=== PATIENT | female | born 1935 | race Caucasian/White ===

== ENCOUNTER 2018-04-24 14:12 | Emergency (ER) | payer MEDICARE, BC ==
--- NOTE | 2018-04-24 19:29 | EDM.PDOC ---
ED HPI GENERAL MEDICAL PROBLEM - General Chief Complaint: ENT Problem Stated Complaint: NOSEBLEED Time Seen by Provider: 04/24/18 14:20 Source of Information: Reports: Patient History Limitations: Reports: No Limitations - History of Present Illness INITIAL COMMENTS - FREE TEXT/NARRATIVE: pt. presents to ER with complaints of bleeding from R nares. States that it has been happening intermittently for 1 hour. She states that she has had issues with more frequent epistaxis this winter and feels it is due to the fact that she had an NG tube in place recently. She states that the bleeding was quite brisk and there were clots coming from her nose. Denies any lightheadedness. No shortness of breath. No nausea, vomiting, or diarrhea. States the bleeding has always been islolated to the R nare. Onset: Today Location: Reports: Face - Related Data Allergies Allergy/AdvReac Type Severity Reaction Status Date / Time atorvastatin calcium Allergy Cannot Verified 04/24/18 14:40 [From Lipitor] Remember calcium Allergy Cannot Verified 04/24/18 14:40 Remember lisinopril Allergy Wheezing Verified 04/24/18 14:40 ezetimibe [From Zetia] AdvReac Joint Pain Verified 04/24/18 14:40 fenofibrate nanocrystallized AdvReac Leg Cramps Verified 04/24/18 14:40 [From Tricor] fenofibrate,micronized AdvReac Leg Cramps Verified 04/24/18 14:40 [From Tricor] lovastatin [From Mevacor] AdvReac Leg Cramps Verified 04/24/18 14:40 prednisone AdvReac Nausea Verified 04/24/18 14:40 Home Meds: Home Meds Aspirin [Halfprin] 81 mg PO DAILY 01/08/14 [History] Docusate Sodium [Colace] 100 mg PO BID 01/08/14 [History] Famotidine [Pepcid] 1 tab PO DAILY PRN 01/08/14 [History] Fish Oil/[place]-3 Fatty Acids [Fish Oil] 1,200 mg PO DAILY 01/08/14 [History] Losartan [Cozaar] 1 tab PO DAILY 01/08/14 [History] Metoprolol Succinate [Toprol XL] 12.5 mg PO DAILY 01/08/14 [History] Multivitamin [Multivitamins] 1 tab PO DAILY 01/08/14 [History] Promethazine [Phenergan] 1 tab PO Q4H PRN 01/08/14 [History] Simvastatin [Zocor] 0.5 tab PO DAILY 01/08/14 [History] amLODIPine [Norvasc] 5 mg PO DAILY 01/08/14 [History] metFORMIN [Glucophage] 1 tab PO BID 01/08/14 [History] Magnesium 200 mg PO ASDIRECTED 01/14/14 [History] Past Medical History Other Gastrointestinal History: perforated colon - Past Surgical History GI Surgical History: Reports: Colon Social & Family History - Tobacco Use Smoking Status *Q: Never Smoker ED ROS GENERAL - Review of Systems Review Of Systems: See Below Constitutional: Reports: No Symptoms HEENT: Reports: Nosebleed Respiratory: Reports: No Symptoms Cardiovascular: Reports: No Symptoms Endocrine: Reports: No Symptoms GI/Abdominal: Reports: No Symptoms : Reports: No Symptoms Musculoskeletal: Reports: No Symptoms Skin: Reports: No Symptoms Neurological: Reports: No Symptoms Psychiatric: Reports: No Symptoms Hematologic/Lymphatic: Reports: No Symptoms Immunologic: Reports: No Symptoms ED EXAM, GENERAL - Physical Exam Exam: See Below Exam Limited By: No Limitations General Appearance: Alert, WD/WN, No Apparent Distress Nose: Other (No active bleeding noted. No evidence of recent bleeding noted from R nare. There is a small nasal polyp or thrombosed vessel in the medial aspect of the R nare that was cauterized with silver nitrate. No other abnormality noted.) Course - Vital Signs Last Recorded V/S: Last Vital Signs Temp 36.8 C 04/24/18 14:20 Pulse 64 04/24/18 14:20 Resp 16 04/24/18 14:20 BP 127/61 04/24/18 14:20 Pulse Ox Departure - Departure Time of Disposition: 15:50 Disposition: Home, Self-Care 01 Condition: Good Clinical Impression: Epistaxis - Discharge Information Instructions: Nosebleed, [id number] Referrals: Vale Moura DO [Primary Care Provider] - Forms: ED Department Discharge Additional Instructions: Return to ER if you have active bleeding for over an hour. We can pack it if need be. Make sure to hold direct pressure, even for a period of time after the bleeding stops. Use a cool mist vaporizer. - Assessment/Plan Plan: Return to ER if you have active bleeding for over an hour. We can pack it if need be. Make sure to hold direct pressure, even for a period of time after the bleeding stops. Use a cool mist vaporizer.
== END 2018-04-24 14:46 | disposition home or self-care (01) ==
LOC: VM.ED 14:12
DX: R04.0 Epistaxis (principal); Z88.8 Allergy status to other drugs, medicaments and biological substances; Z79.82 Long term (current) use of aspirin; Z79.899 Other long term (current) drug therapy
CPT/HCPCS: 30901; 99282; 99283-GF

== ENCOUNTER 2018-05-16 11:49 | Emergency (ER) | payer MEDICARE, BC ==
[2018-05-16] MEDS ORDERED: Sodium Chloride 0.9% 10 ML Syringe FLUSH PRN (11:58)
--- NOTE | 2018-05-16 12:38 | EDM.PDOC ---
ED HPI GENERAL MEDICAL PROBLEM - General Time Seen by Provider: 05/16/18 12:31 Source of Information: Reports: Patient - History of Present Illness INITIAL COMMENTS - FREE TEXT/NARRATIVE: Pt. presents to ER with complaints of expressive aphasia. Initially the onset of symptoms were unknown. She last spoke with her daughter at 8PM last evening. Pt. was able to write that she woke up at 0700 and started having symptoms at approx. 0800, outside of the timeframe for thrombolytics. Denies any other focal neuro symptoms. No issues to paresthesia to the extremities or face. Denies any headache. No chest pain or shortness of breath. In evaluating the patient's [place] chart, it does not appear that she has had any issues with cerebrovascular disease and patient affirms this. No history of a-fib. No chest pain or shortness of breath. Onset: Today Onset Date: 05/16/18 Location: Reports: Generalized Associated Symptoms: Reports: Other (expressive aphasia) - Related Data Allergies Allergy/AdvReac Type Severity Reaction Status Date / Time atorvastatin calcium Allergy Cannot Verified 04/24/18 14:40 [From Lipitor] Remember calcium Allergy Cannot Verified 04/24/18 14:40 Remember lisinopril Allergy Wheezing Verified 04/24/18 14:40 ezetimibe [From Zetia] AdvReac Joint Pain Verified 04/24/18 14:40 fenofibrate nanocrystallized AdvReac Leg Cramps Verified 04/24/18 14:40 [From Tricor] fenofibrate,micronized AdvReac Leg Cramps Verified 04/24/18 14:40 [From Tricor] lovastatin [From Mevacor] AdvReac Leg Cramps Verified 04/24/18 14:40 prednisone AdvReac Nausea Verified 04/24/18 14:40 Home Meds: Home Meds Aspirin [Halfprin] 81 mg PO DAILY 01/08/14 [History] Docusate Sodium [Colace] 100 mg PO BID 01/08/14 [History] Famotidine [Pepcid] 1 tab PO DAILY PRN 01/08/14 [History] Fish Oil/[place]-3 Fatty Acids [Fish Oil] 1,200 mg PO DAILY 01/08/14 [History] Losartan [Cozaar] 1 tab PO DAILY 01/08/14 [History] Metoprolol Succinate [Toprol XL] 12.5 mg PO DAILY 01/08/14 [History] Multivitamin [Multivitamins] 1 tab PO DAILY 01/08/14 [History] Promethazine [Phenergan] 1 tab PO Q4H PRN 01/08/14 [History] Simvastatin [Zocor] 0.5 tab PO DAILY 01/08/14 [History] amLODIPine [Norvasc] 5 mg PO DAILY 01/08/14 [History] metFORMIN [Glucophage] 1 tab PO BID 01/08/14 [History] Magnesium 200 mg PO ASDIRECTED 01/14/14 [History] Past Medical History Other Gastrointestinal History: perforated colon - Past Surgical History GI Surgical History: Reports: Colon ED ROS GENERAL - Review of Systems Review Of Systems: See Below Constitutional: Reports: No Symptoms HEENT: Reports: No Symptoms Respiratory: Reports: No Symptoms Cardiovascular: Reports: No Symptoms Endocrine: Reports: No Symptoms GI/Abdominal: Reports: No Symptoms : Reports: No Symptoms Musculoskeletal: Reports: No Symptoms Skin: Reports: No Symptoms Neurological: Reports: Trouble Speaking Psychiatric: Reports: No Symptoms Hematologic/Lymphatic: Reports: No Symptoms Immunologic: Reports: No Symptoms ED EXAM, GENERAL - Physical Exam Exam: See Below Exam Limited By: No Limitations General Appearance: Alert, WD/WN, No Apparent Distress Eye Exam: Bilateral Eye: EOMI, Normal Fundi, Normal Inspection, PERRL Throat/Mouth: Normal Inspection, Normal Lips, Normal Teeth, Normal Gums, Normal Oropharynx, Normal Voice, No Airway Compromise Head: Atraumatic, Normocephalic Neck: Normal Inspection, Supple, Non-Tender, Full Range of Motion Respiratory/Chest: No Respiratory Distress, Lungs Clear, Normal Breath Sounds, No Accessory Muscle Use, Chest Non-Tender Cardiovascular: Normal Peripheral Pulses, Regular Rate, Rhythm, No Edema, No Gallop, No JVD, No Murmur, No Rub Peripheral Pulses: 4+: Radial (L), Radial (R) GI/Abdominal: Normal Bowel Sounds, Soft, Non-Tender, No Organomegaly, No Distention, No Abnormal Bruit, No Mass (Female) Exam: Deferred Rectal (Female) Exam: Deferred Back Exam: Normal Inspection, Full Range of Motion, NT Extremities: Normal Inspection, Normal Range of Motion, Non-Tender, Normal Capillary Refill, No Pedal Edema Neurological: Alert, Oriented, Normal Cognition, Normal Gait, Normal Reflexes, No Motor/Sensory Deficits, Other (profound expressive aphasia. Was able to speak one word on the [employer] stoke word list) Psychiatric: Normal Affect, Normal Mood Skin Exam: Warm, Dry, Intact, Normal Color, No Rash Lymphatic: No Adenopathy Course - Orders/Labs/Meds Orders: Active Orders 24 hr Category Date Time Status EKG Documentation Completion [RC] STAT Care 05/16/18 11:58 Ordered Head wo Cont [CT] Stat Exams 05/16/18 11:57 Ordered Blood Alcohol [ETHANOL BLOOD MEDICAL] [CHEM] Stat Lab 05/16/18 11:58 Ordered COMPREHENSIVE METABOLIC PN,CMP [CHEM] Stat Lab 05/16/18 11:58 Ordered CRP [C-REACTIVE PROTEIN] [CHEM] Stat Lab 05/16/18 11:58 Ordered INR,PT,PROTHROMBIN TIME [COAG] Stat Lab 05/16/18 11:58 Ordered TROPONIN I [CHEM] Stat Lab 05/16/18 11:58 Ordered TSH ULTRASENSITIVE [CHEM] Stat Lab 05/16/18 11:58 Ordered Sodium Chloride 0.9% [Saline Flush] Med 05/16/18 11:58 Ordered 10 ml FLUSH ASDIRECTED PRN Peripheral IV Insertion Adult [OM.PC] Routine Oth 05/16/18 11:58 Ordered Medication Orders Sodium Chloride (Saline Flush) 10 ml FLUSH ASDIRECTED PRN PRN Reason: Keep Vein Open Labs: Laboratory Tests 05/16/18 05/16/18 Range/Units 11:55 12:08 WBC 7.4 (4.0-10.0) x10^3/uL RBC 3.10 L (4.00-5.50) x10^6/uL Hgb 9.2 L (12.0-16.0) g/dL Hct 28.8 L (33.0-47.0) % MCV 92.9 (78.0-93.0) fL MCH 29.7 (26.0-32.0) pg MCHC 31.9 L (32.0-36.0) g/dL RDW Coeff of Gavin 14.8 (10.0-15.0) % Plt Count 303 (130-400) x10^3/uL Neut % (Auto) 75.0 (50.0-80.0) % Lymph % (Auto) 16.8 L (25.0-50.0) % [place] % (Auto) 6.8 (2.0-11.0) % Eos % (Auto) 1.1 (0.0-4.0) % Baso % (Auto) 0.3 (0.2-1.2) % POC Glucose 165 H (74-106) mg/dL Meds: Medications Generic Name Dose Route Start Last Admin Trade Name Bright PRN Reason Stop Dose Admin Sodium Chloride 10 ml 05/16/18 11:58 Saline Flush FLUSH ASDIRECTED PRN Keep Vein Open - Re-Assessments/Exams Free Text/Narrative Re-Assessment/Exam: CT brain without contrast obtained. No obvious hypodensity or hemorrhage noted. Official result is pending. Departure - Departure Time of Disposition: 12:43 Disposition: DC/Tfer to Acute Hospital 02 Condition: Good Clinical Impression: CVA (cerebral vascular accident) - Discharge Information Instructions: Ischemic Stroke Forms: Interfacility Transfer EMTALA - Problem List Review Problem List Initiated/Reviewed/Updated: Yes - My Orders Last 24 Hours: My Active Orders 05/16/18 11:57 Head wo Cont [CT] Stat 05/16/18 11:58 EKG Documentation Completion [RC] STAT Blood Alcohol [ETHANOL BLOOD MEDICAL] [CHEM] Stat COMPREHENSIVE METABOLIC PN,CMP [CHEM] Stat CRP [C-REACTIVE PROTEIN] [CHEM] Stat INR,PT,PROTHROMBIN TIME [COAG] Stat TROPONIN I [CHEM] Stat TSH ULTRASENSITIVE [CHEM] Stat Sodium Chloride 0.9% [Saline Flush] 10 ml FLUSH ASDIRECTED PRN Peripheral IV Insertion Adult [OM.PC] Routine - Assessment/Plan Last 24 Hours: My Active Orders 05/16/18 11:57 Head wo Cont [CT] Stat 05/16/18 11:58 EKG Documentation Completion [RC] STAT Blood Alcohol [ETHANOL BLOOD MEDICAL] [CHEM] Stat COMPREHENSIVE METABOLIC PN,CMP [CHEM] Stat CRP [C-REACTIVE PROTEIN] [CHEM] Stat INR,PT,PROTHROMBIN TIME [COAG] Stat TROPONIN I [CHEM] Stat TSH ULTRASENSITIVE [CHEM] Stat Sodium Chloride 0.9% [Saline Flush] 10 ml FLUSH ASDIRECTED PRN Peripheral IV Insertion Adult [OM.PC] Routine Plan: Dr. Riley from [facility] was contacted. He states that pt. does not meet criteria for TPA based on onset of symptoms[place] but a snow plow will accompany the ambulance as this is a very time sensitive condition. She will be transported via ALS ground.
--- NOTE | 2018-05-16 12:41 | CT ---
[id number] CT/CT Head WO IV EXAM: CT Head WO IV CLINICAL DATA: EXPRESSIVE APHASIA. COMPARISON STUDY: None FINDINGS: No intracranial hemorrhage, extra-axial fluid collection, mass, or acute ischemia. Generalized parenchymal atrophy with scattered areas of nonspecific white matter disease, commonly seen as sequela of chronic microvascular ischemia. Soft tissues are unremarkable. Paranasal sinuses and mastoid air cells are clear. Intracranial vascular calcifications. IMPRESSION: No acute intracranial findings. Piotr Nixon DO 05/16/18 [id number] Thank you for allowing us to participate in the care of your patient.
[2018-05-16 12:43] LABS: CHLORIDE,CL 102 mmol/L (98-107); SODIUM,NA 139 mmol/L (136-145)
[2018-05-16 12:44] LABS: ANION GAP 13.4 mmol/L (10-20)
== END 2018-05-16 12:55 | disposition short-term general hospital (02) ==
LOC: VM.ED 11:49
DX: I63.9 Cerebral infarction, unspecified (principal); Z79.82 Long term (current) use of aspirin; Z79.899 Other long term (current) drug therapy; Z88.8 Allergy status to other drugs, medicaments and biological substances
CPT/HCPCS: 70450; 80053; 82962; 84443; 84484; 85025; 85610; 86140; 99285; G0480

== ENCOUNTER 2018-05-30 10:34 | Emergency (ER) | payer MEDICARE, BC ==
--- NOTE | 2018-05-30 10:53 | EDM.PDOC ---
ED HPI GENERAL MEDICAL PROBLEM - General Chief Complaint: ENT Problem Stated Complaint: Nose bleed Time Seen by Provider: 05/30/18 10:46 Source of Information: Reports: Patient, RN, RN Notes Reviewed History Limitations: Reports: No Limitations - History of Present Illness INITIAL COMMENTS - FREE TEXT/NARRATIVE: Patient presents to the ED at [facility] for the evaluation of a nose bleed that started about 1 1/2 hour prior to presentation. Patient states she has been applying pressure without any relief. Patient denies any dizziness. Patient states the nose bleed started while she was in the shower. Onset: Today Onset Date: 05/30/18 - Related Data Allergies Allergy/AdvReac Type Severity Reaction Status Date / Time atorvastatin calcium Allergy Cannot Verified 04/24/18 14:40 [From Lipitor] Remember calcium Allergy Cannot Verified 04/24/18 14:40 Remember lisinopril Allergy Wheezing Verified 04/24/18 14:40 ezetimibe [From Zetia] AdvReac Joint Pain Verified 04/24/18 14:40 fenofibrate nanocrystallized AdvReac Leg Cramps Verified 04/24/18 14:40 [From Tricor] fenofibrate,micronized AdvReac Leg Cramps Verified 04/24/18 14:40 [From Tricor] lovastatin [From Mevacor] AdvReac Leg Cramps Verified 04/24/18 14:40 prednisone AdvReac Nausea Verified 04/24/18 14:40 Home Meds: Home Meds Aspirin [Halfprin] 81 mg PO DAILY 01/08/14 [History] Docusate Sodium [Colace] 100 mg PO BID 01/08/14 [History] Famotidine [Pepcid] 1 tab PO DAILY PRN 01/08/14 [History] Fish Oil/[place]-3 Fatty Acids [Fish Oil] 1,200 mg PO DAILY 01/08/14 [History] Losartan [Cozaar] 1 tab PO DAILY 01/08/14 [History] Metoprolol Succinate [Toprol XL] 12.5 mg PO DAILY 01/08/14 [History] Multivitamin [Multivitamins] 1 tab PO DAILY 01/08/14 [History] Promethazine [Phenergan] 1 tab PO Q4H PRN 01/08/14 [History] Simvastatin [Zocor] 0.5 tab PO DAILY 01/08/14 [History] amLODIPine [Norvasc] 5 mg PO DAILY 01/08/14 [History] metFORMIN [Glucophage] 1 tab PO BID 01/08/14 [History] Magnesium 200 mg PO ASDIRECTED 01/14/14 [History] Past Medical History Other Gastrointestinal History: perforated colon - Past Surgical History GI Surgical History: Reports: Colon ED ROS ENT - Review of Systems Review Of Systems: See Below Constitutional: Denies: Fever, Chills HEENT: Reports: Nosebleed Respiratory: Denies: Shortness of Breath, Cough, Hemoptysis Cardiovascular: Denies: Chest Pain, Palpitations Skin: Reports: No Symptoms Neurological: Reports: No Symptoms ED EXAM, ENT - Physical Exam Exam: See Below Exam Limited By: No Limitations General Appearance: Alert, No Apparent Distress Nose: Nasal Tenderness, Active Bleeding Mouth/Throat: Normal Inspection Respiratory/Chest: No Respiratory Distress, Lungs Clear, Normal Breath Sounds Cardiovascular: Normal Peripheral Pulses, Regular Rate, Rhythm Neurological: Alert, Oriented Skin: Warm, Dry, Intact, Normal Color ED ENT PROCEDURES - Epistaxis Procedure Indication: Uncontrolled Recent anticoagulants/antiplatlets: Yes Uncontrolled HTN: No Recent septal/nasal surgery: No Site of bleeding: Right Nare Clearing of clots: Patient Blew Nose Ice pack to area: No Anterior Packing: Inflatable Nasal Tampon Complications: No Departure - Departure Time of Disposition: 10:53 Disposition: Home, Self-Care 01 Condition: Good Clinical Impression: Nosebleed - Discharge Information *PRESCRIPTION DRUG MONITORING PROGRAM REVIEWED*: Not Applicable *COPY OF PRESCRIPTION DRUG MONITORING REPORT IN PATIENT TIMUR: Not Applicable Instructions: Nosebleed, Adult Referrals: Vale Moura DO [Physician] - Forms: ED Department Discharge Additional Instructions: 1. Stay well hydrated and rest 2. Do not remove packing 3. If packing becomes saturated, use pressure 4. Go to clinic in 24 hours for removal of packing and a recheck 5. Call us with questions or concerns - Problem List Review Problem List Initiated/Reviewed/Updated: Yes - Assessment/Plan Assessment:: Nosebleed Plan: Nose bleeding from several sources. Anterior packing was placed without difficulty. Instructions given on home care for nosebleeds. Patient to see her PCP tomorrow for a follow up and possible removal of packing. Patient voice understanding
[2018-05-30] MEDS: Acetaminophen 500 MG Tab PO ONE (11:11)
[2018-05-30 14:04] VITALS: BP 147/74
== END 2018-05-30 11:00 | disposition home or self-care (01) ==
LOC: VM.ED 10:34
DX: R04.0 Epistaxis (principal); Z79.82 Long term (current) use of aspirin; Z79.899 Other long term (current) drug therapy; Z88.8 Allergy status to other drugs, medicaments and biological substances
CPT/HCPCS: 30901; 30903; 99283-25; 99283-GF; A9270-GY

== ENCOUNTER 2019-11-13 10:53 | Day surgery (SDC) | payer MEDICARE, BC ==
[~2019-11-13 10:53] MED LIST: Lactated Ringers 1,000 ML IV SCH
[2019-11-13] MEDS ORDERED: fentaNYL 100 MCG/2 ML SDV ONE (12:55)
[2019-11-13] MEDS ORDERED: Propofol 200 MG/20 ML SDV ONE (12:56)
[2019-11-13] MEDS ORDERED: Lidocaine 4% 5 ML Amp ONE (13:09)
[2019-11-13] MEDS ORDERED: Ondansetron 4 MG/2 ML SDV IVPUSH ONE (14:29)
--- NOTE | 2019-11-17 11:16 | OR ---
SURGERY DATE: 11/13/2019. REFERRING PROVIDER: Vale Moura DO PRE-OPERATIVE DIAGNOSES: 1. Iron deficiency anemia. 2. History of abnormal CT with questionable distal esophageal thickening (per patient report). 3. History of lymphoma. POST-OPERATIVE DIAGNOSES: 1. Moderate esophagitis diffusely with appearance of sloughing of the mucosa which was quite friable. Biopsies and brushings taken from the esophagus. 2. Mild duodenitis. This was both 2nd and 3rd portions as well as the duodenal bulb. Cold biopsies taken. 3. [id number] gastritis, most prominent in the antrum. Antral biopsy x2 bites taken. PROCEDURE: Esophagogastroduodenoscopy with cold biopsy x3 separate sites as well as esophageal brushings. SURGEON: Wolf Pruitt M.D. ANESTHESIA: Monitored anesthesia care. Irena is an 84-year-old female who was brought to the endoscope suite after discussion of risks and benefits (including but not limited to reaction to medication, bleeding, infection, aspiration, perforation). Informed consent was obtained for monitored anesthesia care and esophagogastroduodenoscopy along with possible biopsy and/or dilatation. Pre-procedure exam including oral cavity unremarkable except for presence of dentures. The patient was given topical anesthesia with viscous lidocaine. IV, oxygen, and monitors were placed. Patient was placed in the left lateral position and sedation was administered. A bite block was placed gently and scope lightly lubricated and passed through the bite block and over the tongue. Hypopharynx and vocal cords were visualized and unremarkable. Scope was passed through the cricopharynx and into the esophagus. The scope was then passed through the distal esophagus and the GE junction was visualized and photographed. The GE junction was remarkable for small hiatal hernia. There was some mild esophagitis noted at the GE junction. There was moderate esophagitis noted diffusely above this with the appearance of sloughing of the mucosa, which ended up being quite friable. On the way out, biopsies were taken along with esophageal brushings. Fungal esophagitis should be considered. We will await biopsies and brushings. Vocal cords were visualized and unremarkable. The scope was advanced into the stomach and gastric siddiqui was suctioned. Pylorus was identified and intubated and then the scope was advanced to the third portion of the duodenum. The second and third portions of the duodenum were remarkable for some mild duodenitis. The duodenal bulb was visualized and also showed some mild duodenitis. The scope was brought back into the stomach. The pylorus and the antrum were remarkable for moderate gastritis. Cold biopsies were taken for path and H pylori. The scope was then retroflexed to visualize the angularis, fundus, body, and cardia. These showed some mild gastritis. The stomach was desufflated of air and then the scope was slowly withdrawn, and the esophagus was closely visualized during withdrawal all the way into the posterior pharynx. Cold biopsies and brushings were taken as noted above. The patient tolerated the procedure well and went to recovery in stable condition. The patient was monitored until at baseline status. Findings and discharge instructions were reviewed and the patient was discharged in good condition. COMPLICATIONS: None TOTAL SCOPE TIME: 12 minutes. ESTIMATED BLOOD LOSS: 2 to 3 mL. RECOMMENDATIONS/FOLLOW-UP: We will await results of path report to determine ideal treatment and need for any followup. The patient had been taking her full- dose aspirin up through yesterday. We will have her hold her aspirin for 3 days given the friable mucosa noted especially of the esophagus. The patient can discuss possibly decreasing aspirin dose in the future. This can be discussed with her PCP. Would recommend she resume her pantoprazole 40 mg daily. The patient is unsure if she is taking this currently. I would like to kindly thank Vale Moura for this referral. DMB: 11/13/2019 14:32:15 MODL: 11/13/2019 19:05:46 /[id number]
== END 2019-11-13 15:10 | disposition home or self-care (01) ==
LOC: VM.SDS 10:53
PROVIDERS: ATTEND Family Medicine
DX: K29.50 Unspecified chronic gastritis without bleeding (principal); K29.80 Duodenitis without bleeding; K21.0 Gastro-esophageal reflux disease with esophagitis; K22.8 Other specified diseases of esophagus; D50.9 Iron deficiency anemia, unspecified; E78.5 Hyperlipidemia, unspecified; K44.9 Diaphragmatic hernia without obstruction or gangrene; E11.9 Type 2 diabetes mellitus without complications; Z11.59 Encounter for screening for other viral diseases; Z85.72 Personal history of non-Hodgkin lymphomas; Z79.899 Other long term (current) drug therapy; Z79.84 Long term (current) use of oral hypoglycemic drugs; Z88.8 Allergy status to other drugs, medicaments and biological substances
CPT/HCPCS: 00731; 82962; 88305; 88312; 88342; J2405; J2704; J3010; J7120; U0002

== ENCOUNTER 2022-10-23 13:55 | Inpatient (IN) | payer MEDICARE, BC ==
[2022-10-23] MEDS ORDERED: Acetaminophen 325 MG Tab PO PRN (17:01)
[2022-10-23] MEDS ORDERED: Hypromellose 0.3% Ophth Soln 15 ML Bottle EYEBOTH PRN (17:01)
[2022-10-23] MEDS ORDERED: Non-Formulary Medication 1 Each (Ferrous Gluconate [Ferrous Gluconate] 324 MG Tablet) PO SCH (17:15)
[2022-10-23 17:37] LABS: HEMATOCRIT 31.4 % (33.0-47.0); HEMOGLOBIN 10.3 g/dL (12.0-16.0); MEAN CORPUSCULAR HEMOGLOBIN 32.4 pg (26.0-32.0); MEAN CORPUSCULAR HGB CONC 32.8 g/dL (32.0-36.0); MEAN CORPUSCULAR VOLUME 98.7 fL (78.0-93.0); RED BLOOD CELL COUNT 3.18 x10^6/uL (4.00-5.50); WHITE BLOOD CELL COUNT,WBC 5.9 x10^3/uL (4.0-10.0)
[2022-10-23 18:01] LABS: A/G RATIO 0.92; ALBUMIN 3.5 g/dL (3.4-5.0); BILIRUBIN TOTAL 0.6 mg/dL (0.2-1.0); CALCIUM 10.3 mg/dL (8.5-10.1); CREATININE 2.8 mg/dL (0.55-1.02); EST CRCL DRUG DOSING (CG) 11.63 mL/min; POTASSIUM,K 5.3 mmol/L (3.5-5.1); PROTEIN TOTAL,TP 7.3 g/dL (6.4-8.2)
[2022-10-23 18:18] LABS: ANION GAP 15.3 mmol/L (5-15)
[2022-10-23] MEDS: Torsemide 20 MG Tab PO SCH (18:22)
[2022-10-23] MEDS: glipiZIDE 5 MG Tab PO SCH (18:23)
[2022-10-23] MEDS: Carvedilol 3.125 MG Tab PO SCH (18:26)
[2022-10-23] MEDS: Mirtazapine 15 MG Tab PO SCH (20:52)
[2022-10-24 07:13] LABS: CALCIUM 9.8 mg/dL (8.5-10.1); CREATININE 2.8 mg/dL (0.55-1.02); EST CRCL DRUG DOSING (CG) 11.63 mL/min; POTASSIUM,K 5.2 mmol/L (3.5-5.1)
[2022-10-24 07:14] LABS: ANION GAP 16.2 mmol/L (5-15)
[2022-10-24] MEDS ORDERED: Glucagon,Human Recombinant 1 MG Vial IM PRN (08:19)
[2022-10-24] MEDS ORDERED: 50% Dextrose in Water 50 ML Syringe IVPUSH PRN (08:19)
[2022-10-24] MEDS: glipiZIDE 5 MG Tab PO SCH ×2 (08:32→18:46)
[2022-10-24] MEDS: Pantoprazole 40 MG Tab.CR PO SCH (08:32)
[2022-10-24] MEDS: Simvastatin 40 MG Tab PO SCH (08:32)
[2022-10-24] MEDS: Aspirin 325 MG Tab.EC PO SCH (08:32)
[2022-10-24] MEDS: Multivitamin Tab PO SCH (08:33)
[2022-10-24] MEDS: Torsemide 20 MG Tab PO SCH ×2 (08:33→13:12)
[2022-10-24] MEDS: Carvedilol 3.125 MG Tab PO SCH ×2 (08:34→18:58)
[2022-10-24] MEDS ORDERED: Sacubitril/Valsartan 24 MG-26 MG Tab PO SCH (09:00)
[2022-10-24] MEDS: Insulin Glarg,Human.Rec.Analog 100 Unit/ML SUBCUT SCH (09:49)
[2022-10-24] MEDS: traZODone 50 MG Tab PO SCH (20:41)
[2022-10-24] MEDS: Mirtazapine 15 MG Tab PO SCH (20:42)
[2022-10-25 07:05] LABS: BASOPHILS PERCENT AUTO 0.4 % (0.2-1.2); EOSINOPHILS PERCENT AUTO 0.7 % (0.0-4.0); HEMATOCRIT 29.6 % (33.0-47.0); HEMOGLOBIN 9.4 g/dL (12.0-16.0); LYMPHOCYTES ABSOLUTE AUTO 0.3 x10^3/uL (1.0-4.8); LYMPHOCYTES PERCENT AUTO 6.9 % (25.0-50.0); MEAN CORPUSCULAR HEMOGLOBIN 31.6 pg (26.0-32.0); MEAN CORPUSCULAR HGB CONC 31.8 g/dL (32.0-36.0); MEAN CORPUSCULAR VOLUME 99.7 fL (78.0-93.0); MONOCYTES ABSOLUTE AUTO 0.4 x10^3/uL (0.0-0.8); MONOCYTES PERCENT AUTO 7.6 % (2.0-11.0); NEUTROPHILS ABSOLUTE AUTO 3.9 x10^3/uL (1.8-7.7); PLATELET COUNT,PLT 160 x10^3/uL (130-400); RED BLOOD CELL COUNT 2.97 x10^6/uL (4.00-5.50); WHITE BLOOD CELL COUNT,WBC 4.6 x10^3/uL (4.0-10.0)
[2022-10-25 07:18] LABS: ANION GAP 11.7 mmol/L (5-15); CALCIUM 9.4 mg/dL (8.5-10.1); CREATININE 2.7 mg/dL (0.55-1.02); EST CRCL DRUG DOSING (CG) 12.06 mL/min; POTASSIUM,K 4.7 mmol/L (3.5-5.1)
[2022-10-25 07:25] LABS: NEUTROPHILS PERCENT AUTO 84.4 % (50.0-80.0)
[2022-10-25] MEDS: Aspirin 325 MG Tab.EC PO SCH (08:39)
[2022-10-25] MEDS: Pantoprazole 40 MG Tab.CR PO SCH (08:39)
[2022-10-25] MEDS: Multivitamin Tab PO SCH (08:39)
[2022-10-25] MEDS: Torsemide 20 MG Tab PO SCH ×2 (08:39→13:52)
[2022-10-25] MEDS: Simvastatin 40 MG Tab PO SCH (08:39)
[2022-10-25] MEDS: Carvedilol 3.125 MG Tab PO SCH ×2 (08:40→18:07)
[2022-10-25] MEDS ORDERED: Metolazone 2.5 MG Tab PO ONE (08:41)
[2022-10-25] MEDS: glipiZIDE 5 MG Tab PO SCH ×2 (08:43→18:08)
[2022-10-25] MEDS: Magnesium Oxide 400 MG Tab PO SCH (08:43)
[2022-10-25] MEDS: Insulin Glarg,Human.Rec.Analog 100 Unit/ML SUBCUT SCH (08:47)
[2022-10-25] MEDS: Mirtazapine 15 MG Tab PO SCH (20:06)
[2022-10-25] MEDS: traZODone 50 MG Tab PO SCH (20:06)
[2022-10-26 06:49] LABS: BASOPHILS PERCENT AUTO 0.2 % (0.2-1.2); EOSINOPHILS ABSOLUTE AUTO 0.1 x10^3/uL (0.0-0.5); HEMATOCRIT 29.4 % (33.0-47.0); HEMOGLOBIN 9.5 g/dL (12.0-16.0); IMMATURE GRAN ABSOLUTE AUTO 0.01 x10^3/uL (0.00-0.07); LYMPHOCYTES ABSOLUTE AUTO 0.4 x10^3/uL (1.0-4.8); LYMPHOCYTES PERCENT AUTO 8.1 % (25.0-50.0); MEAN CORPUSCULAR HEMOGLOBIN 31.7 pg (26.0-32.0); MEAN CORPUSCULAR HGB CONC 32.3 g/dL (32.0-36.0); MONOCYTES ABSOLUTE AUTO 0.4 x10^3/uL (0.0-0.8); MONOCYTES PERCENT AUTO 7.7 % (2.0-11.0); NEUTROPHILS PERCENT AUTO 82.8 % (50.0-80.0); WHITE BLOOD CELL COUNT,WBC 4.8 x10^3/uL (4.0-10.0)
[2022-10-26 07:06] LABS: CALCIUM 9.3 mg/dL (8.5-10.1); CREATININE 2.5 mg/dL (0.55-1.02); EST CRCL DRUG DOSING (CG) 13.02 mL/min; POTASSIUM,K 3.8 mmol/L (3.5-5.1)
[2022-10-26 07:07] LABS: ANION GAP 14.8 mmol/L (5-15)
[2022-10-26 07:14] LABS: PLATELET COUNT,PLT 164 x10^3/uL (130-400)
[2022-10-26] MEDS: glipiZIDE 5 MG Tab PO SCH ×2 (09:24→18:54)
[2022-10-26] MEDS: Multivitamin Tab PO SCH (09:24)
[2022-10-26] MEDS: Torsemide 20 MG Tab PO SCH ×2 (09:24→16:36)
[2022-10-26] MEDS: Carvedilol 3.125 MG Tab PO SCH ×2 (09:24→18:53)
[2022-10-26] MEDS: Pantoprazole 40 MG Tab.CR PO SCH (09:25)
[2022-10-26] MEDS: Simvastatin 40 MG Tab PO SCH (09:25)
[2022-10-26] MEDS: Insulin Glarg,Human.Rec.Analog 100 Unit/ML SUBCUT SCH (09:29)
[2022-10-26] MEDS: Aspirin 325 MG Tab.EC PO SCH (09:29)
[2022-10-26 12:31] LABS: HEMATOCRIT 28.9 % (33.0-47.0); HEMOGLOBIN 9.6 g/dL (12.0-16.0); MEAN CORPUSCULAR HEMOGLOBIN 32.2 pg (26.0-32.0); MEAN CORPUSCULAR HGB CONC 33.2 g/dL (32.0-36.0); RED BLOOD CELL COUNT 2.98 x10^6/uL (4.00-5.50); WHITE BLOOD CELL COUNT,WBC 4.8 x10^3/uL (4.0-10.0)
[2022-10-26 12:47] LABS: INR 1.1 (2.0-3.5); PROTHROMBIN TIME 11.8 SEC (9.5-12.2)
[2022-10-26 12:54] LABS: CALCIUM 9.2 mg/dL (8.5-10.1)
[2022-10-26 12:58] LABS: CREATININE 2.5 mg/dL (0.55-1.02); EST CRCL DRUG DOSING (CG) 13.02 mL/min; POTASSIUM,K 3.6 mmol/L (3.5-5.1)
[2022-10-26 13:04] LABS: ANION GAP 12.6 mmol/L (5-15)
[2022-10-26] MEDS: Clopidogrel 75 MG Tab PO SCH (16:37)
[2022-10-26] MEDS: traZODone 50 MG Tab PO SCH (20:19)
[2022-10-26] MEDS: Mirtazapine 15 MG Tab PO SCH (20:19)
[2022-10-27] MEDS: Carvedilol 3.125 MG Tab PO SCH ×2 (08:18→18:01)
[2022-10-27] MEDS: glipiZIDE 5 MG Tab PO SCH ×2 (08:19→17:59)
[2022-10-27] MEDS: Ferrous Sulfate 325 MG Tab PO SCH (08:19)
[2022-10-27] MEDS: Magnesium Oxide 400 MG Tab PO SCH (08:20)
[2022-10-27] MEDS: Insulin Glarg,Human.Rec.Analog 100 Unit/ML SUBCUT SCH (08:22)
[2022-10-27] MEDS: Clopidogrel 75 MG Tab PO SCH (09:20)
[2022-10-27] MEDS: Torsemide 20 MG Tab PO SCH ×2 (09:21→13:24)
[2022-10-27] MEDS: Aspirin 325 MG Tab.EC PO SCH (09:21)
[2022-10-27] MEDS: Multivitamin Tab PO SCH (09:21)
[2022-10-27] MEDS: Simvastatin 40 MG Tab PO SCH (09:21)
[2022-10-27] MEDS: Spironolactone 25 MG Tab PO SCH (09:22)
[2022-10-27] MEDS: Pantoprazole 40 MG Tab.CR PO SCH (09:25)
[2022-10-27] MEDS: traZODone 50 MG Tab PO SCH (21:09)
[2022-10-27] MEDS: Mirtazapine 15 MG Tab PO SCH (21:10)
[2022-10-28] MEDS: Carvedilol 3.125 MG Tab PO SCH ×2 (08:01→21:56)
[2022-10-28] MEDS: glipiZIDE 5 MG Tab PO SCH ×2 (08:02→21:55)
[2022-10-28] MEDS: Insulin Glarg,Human.Rec.Analog 100 Unit/ML SUBCUT SCH (08:03)
[2022-10-28] MEDS: Multivitamin Tab PO SCH (09:31)
[2022-10-28] MEDS: Aspirin 325 MG Tab.EC PO SCH (09:31)
[2022-10-28] MEDS: Clopidogrel 75 MG Tab PO SCH (09:32)
[2022-10-28] MEDS: Pantoprazole 40 MG Tab.CR PO SCH (09:32)
[2022-10-28] MEDS: Torsemide 20 MG Tab PO SCH ×2 (09:33→13:19)
[2022-10-28] MEDS: Spironolactone 25 MG Tab PO SCH (09:33)
[2022-10-28] MEDS: Simvastatin 40 MG Tab PO SCH (09:33)
[2022-10-28] MEDS: traZODone 50 MG Tab PO SCH (21:54)
[2022-10-28] MEDS: Mirtazapine 15 MG Tab PO SCH (21:55)
[2022-10-29] MEDS: Carvedilol 3.125 MG Tab PO SCH ×2 (08:04→17:16)
[2022-10-29] MEDS: glipiZIDE 5 MG Tab PO SCH ×2 (08:05→17:15)
[2022-10-29] MEDS: Insulin Glarg,Human.Rec.Analog 100 Unit/ML SUBCUT SCH (09:54)
[2022-10-29] MEDS: Torsemide 20 MG Tab PO SCH ×2 (09:56→13:17)
[2022-10-29] MEDS: Multivitamin Tab PO SCH (09:57)
[2022-10-29] MEDS: Clopidogrel 75 MG Tab PO SCH (09:57)
[2022-10-29] MEDS: Spironolactone 25 MG Tab PO SCH (09:58)
[2022-10-29] MEDS: Pantoprazole 40 MG Tab.CR PO SCH (09:59)
[2022-10-29] MEDS: Simvastatin 40 MG Tab PO SCH (09:59)
[2022-10-29] MEDS: Aspirin 325 MG Tab.EC PO SCH (09:59)
[2022-10-29] MEDS: Mirtazapine 15 MG Tab PO SCH (20:23)
[2022-10-29] MEDS: traZODone 50 MG Tab PO SCH (20:23)
[2022-10-30 06:44] LABS: BASOPHILS PERCENT AUTO 0.4 % (0.2-1.2); EOSINOPHILS ABSOLUTE AUTO 0.1 x10^3/uL (0.0-0.5); EOSINOPHILS PERCENT AUTO 1.4 % (0.0-4.0); HEMATOCRIT 28.3 % (33.0-47.0); HEMOGLOBIN 9.2 g/dL (12.0-16.0); IMMATURE GRAN ABSOLUTE AUTO 0.01 x10^3/uL (0.00-0.07); LYMPHOCYTES ABSOLUTE AUTO 0.5 x10^3/uL (1.0-4.8); MEAN CORPUSCULAR HEMOGLOBIN 31.6 pg (26.0-32.0); MEAN CORPUSCULAR HGB CONC 32.5 g/dL (32.0-36.0); MEAN CORPUSCULAR VOLUME 97.3 fL (78.0-93.0); MONOCYTES ABSOLUTE AUTO 0.5 x10^3/uL (0.0-0.8); MONOCYTES PERCENT AUTO 9.7 % (2.0-11.0); NEUTROPHILS ABSOLUTE AUTO 3.9 x10^3/uL (1.8-7.7); NEUTROPHILS PERCENT AUTO 78.8 % (50.0-80.0); PLATELET COUNT,PLT 142 x10^3/uL (130-400); RED BLOOD CELL COUNT 2.91 x10^6/uL (4.00-5.50); WHITE BLOOD CELL COUNT,WBC 4.9 x10^3/uL (4.0-10.0)
[2022-10-30 06:53] LABS: EST CRCL DRUG DOSING (CG) 16.18 mL/min; POTASSIUM,K 4.2 mmol/L (3.5-5.1)
[2022-10-30 06:54] LABS: ANION GAP 9.2 mmol/L (5-15)
[2022-10-30 07:01] LABS: LYMPHOCYTES PERCENT AUTO 9.5 % (25.0-50.0)
[2022-10-30] MEDS: Multivitamin Tab PO SCH (08:14)
[2022-10-30] MEDS: Simvastatin 40 MG Tab PO SCH (08:14)
[2022-10-30] MEDS: Torsemide 20 MG Tab PO SCH ×2 (08:14→13:05)
[2022-10-30] MEDS: Pantoprazole 40 MG Tab.CR PO SCH (08:15)
[2022-10-30] MEDS: Spironolactone 25 MG Tab PO SCH (08:15)
[2022-10-30] MEDS: Carvedilol 3.125 MG Tab PO SCH ×2 (08:15→17:33)
[2022-10-30] MEDS: Magnesium Oxide 400 MG Tab PO SCH ×3 (08:15→12:07)
[2022-10-30] MEDS: glipiZIDE 5 MG Tab PO SCH ×2 (08:16→17:33)
[2022-10-30] MEDS: Clopidogrel 75 MG Tab PO SCH (08:16)
[2022-10-30] MEDS: Aspirin 325 MG Tab.EC PO SCH (08:16)
[2022-10-30] MEDS: Insulin Glarg,Human.Rec.Analog 100 Unit/ML SUBCUT SCH (08:17)
[2022-10-30] MEDS: Ferrous Sulfate 325 MG Tab PO SCH (08:20)
[2022-10-30] MEDS: Mirtazapine 15 MG Tab PO SCH (20:30)
[2022-10-30] MEDS: traZODone 50 MG Tab PO SCH (20:30)
[2022-10-31] MEDS: Magnesium Oxide 400 MG Tab PO SCH (08:54)
[2022-10-31] MEDS: Clopidogrel 75 MG Tab PO SCH (08:54)
[2022-10-31] MEDS: Simvastatin 40 MG Tab PO SCH (08:54)
[2022-10-31] MEDS: Pantoprazole 40 MG Tab.CR PO SCH (08:54)
[2022-10-31] MEDS: glipiZIDE 5 MG Tab PO SCH ×2 (08:55→17:03)
[2022-10-31] MEDS: Spironolactone 25 MG Tab PO SCH (08:55)
[2022-10-31] MEDS: Multivitamin Tab PO SCH (08:55)
[2022-10-31] MEDS: Carvedilol 3.125 MG Tab PO SCH ×2 (08:55→17:02)
[2022-10-31] MEDS: Torsemide 20 MG Tab PO SCH ×2 (08:55→13:23)
[2022-10-31] MEDS: Aspirin 325 MG Tab.EC PO SCH (08:56)
[2022-10-31] MEDS: Insulin Glarg,Human.Rec.Analog 100 Unit/ML SUBCUT SCH (09:03)
[2022-10-31] MEDS: Mirtazapine 15 MG Tab PO SCH (20:33)
[2022-10-31] MEDS: traZODone 50 MG Tab PO SCH (20:33)
[2022-11-01] MEDS: Clopidogrel 75 MG Tab PO SCH (08:07)
[2022-11-01] MEDS: Multivitamin Tab PO SCH (08:07)
[2022-11-01] MEDS: Pantoprazole 40 MG Tab.CR PO SCH (08:07)
[2022-11-01] MEDS: Torsemide 20 MG Tab PO SCH ×2 (08:07→13:05)
[2022-11-01] MEDS: Spironolactone 25 MG Tab PO SCH (08:07)
[2022-11-01] MEDS: glipiZIDE 5 MG Tab PO SCH ×2 (08:07→17:13)
[2022-11-01] MEDS: Simvastatin 40 MG Tab PO SCH (08:08)
[2022-11-01] MEDS: Magnesium Oxide 400 MG Tab PO SCH (08:08)
[2022-11-01] MEDS: Carvedilol 3.125 MG Tab PO SCH ×2 (08:08→17:13)
[2022-11-01] MEDS: Insulin Glarg,Human.Rec.Analog 100 Unit/ML SUBCUT SCH (08:09)
[2022-11-01] MEDS: traZODone 50 MG Tab PO SCH (20:46)
[2022-11-01] MEDS: Mirtazapine 15 MG Tab PO SCH (20:47)
[2022-11-02] MEDS: Spironolactone 25 MG Tab PO SCH (08:21)
[2022-11-02] MEDS: Pantoprazole 40 MG Tab.CR PO SCH (08:22)
[2022-11-02] MEDS: Torsemide 20 MG Tab PO SCH (08:23)
[2022-11-02] MEDS: Clopidogrel 75 MG Tab PO SCH (08:23)
[2022-11-02] MEDS: glipiZIDE 5 MG Tab PO SCH (08:24)
[2022-11-02] MEDS: Magnesium Oxide 400 MG Tab PO SCH (08:24)
[2022-11-02] MEDS: Simvastatin 40 MG Tab PO SCH (08:25)
[2022-11-02] MEDS: Carvedilol 3.125 MG Tab PO SCH (08:26)
[2022-11-02] MEDS: Multivitamin Tab PO SCH (08:26)
[2022-11-02] MEDS: Insulin Glarg,Human.Rec.Analog 100 Unit/ML SUBCUT SCH (08:30)
== END 2022-11-02 11:00 | disposition home health service (06) | DRG 948 ==
LOC: VM.MS 15:58
PROVIDERS: ADMIT Internal Medicine; ATTEND Internal Medicine
DX: R53.1 Weakness (principal); I13.0 Hypertensive heart and chronic kidney disease with heart failure and stage 1 through stage 4 chronic kidney disease, or unspecified chronic kidney disease; N17.9 Acute kidney failure, unspecified; I42.9 Cardiomyopathy, unspecified; I50.22 Chronic systolic (congestive) heart failure; R53.81 Other malaise; N18.9 Chronic kidney disease, unspecified; K21.9 Gastro-esophageal reflux disease without esophagitis; G47.00 Insomnia, unspecified; F32.A Depression, unspecified; F43.21 Adjustment disorder with depressed mood; D63.1 Anemia in chronic kidney disease; E78.5 Hyperlipidemia, unspecified; E11.65 Type 2 diabetes mellitus with hyperglycemia; E11.22 Type 2 diabetes mellitus with diabetic chronic kidney disease; Z86.73 Personal history of transient ischemic attack (TIA), and cerebral infarction without residual deficits; Z85.72 Personal history of non-Hodgkin lymphomas; Z79.82 Long term (current) use of aspirin; Z79.899 Other long term (current) drug therapy; Z79.02 Long term (current) use of antithrombotics/antiplatelets; Z79.4 Long term (current) use of insulin; Z79.84 Long term (current) use of oral hypoglycemic drugs; Z88.8 Allergy status to other drugs, medicaments and biological substances; Z87.440 Personal history of urinary (tract) infections; Z90.49 Acquired absence of other specified parts of digestive tract; Z98.890 Other specified postprocedural states; Z90.711 Acquired absence of uterus with remaining cervical stump; Z95.0 Presence of cardiac pacemaker; Z98.49 Cataract extraction status, unspecified eye; Z87.19 Personal history of other diseases of the digestive system
CPT/HCPCS: 36415; 70450; 71046; 80048; 80053; 82947; 83735; 83880; 84484; 85025; 85027; 85610; 85730; 93005; 94760; 97110-GP; 97116-GP; 97161-GP; 97165-GO; 97530-GO; 97535-GO; A9270-GY; J1815-GY

== ENCOUNTER 2022-12-01 11:28 | Emergency (ER) | payer MEDICARE, BC ==
[2022-12-01 12:01] LABS: BASOPHILS PERCENT AUTO 0.4 % (0.2-1.2); EOSINOPHILS ABSOLUTE AUTO 0.1 x10^3/uL (0.0-0.5); EOSINOPHILS PERCENT AUTO 1.8 % (0.0-4.0); HEMATOCRIT 26.6 % (33.0-47.0); HEMOGLOBIN 8.7 g/dL (12.0-16.0); IMMATURE GRAN ABSOLUTE AUTO 0.01 x10^3/uL (0.00-0.07); LYMPHOCYTES ABSOLUTE AUTO 0.3 x10^3/uL (1.0-4.8); MEAN CORPUSCULAR HEMOGLOBIN 32.3 pg (26.0-32.0); MEAN CORPUSCULAR HGB CONC 32.7 g/dL (32.0-36.0); MEAN CORPUSCULAR VOLUME 98.9 fL (78.0-93.0); MONOCYTES ABSOLUTE AUTO 0.5 x10^3/uL (0.0-0.8); MONOCYTES PERCENT AUTO 10.8 % (2.0-11.0); NEUTROPHILS PERCENT AUTO 80.8 % (50.0-80.0); RED BLOOD CELL COUNT 2.69 x10^6/uL (4.00-5.50)
[2022-12-01 12:09] LABS: PLATELET COUNT,PLT 153 x10^3/uL (130-400)
[2022-12-01 12:29] LABS: A/G RATIO 0.83; ANION GAP 11.5 mmol/L (5-15); BILIRUBIN TOTAL 0.4 mg/dL (0.2-1.0); C-REACTIVE PROTEIN 0.71 mg/dL (<=0.30); CALCIUM 8.6 mg/dL (8.5-10.1); CREATININE 2.1 mg/dL (0.55-1.02); EST CRCL DRUG DOSING (CG) 15.15 mL/min; POTASSIUM,K 4.5 mmol/L (3.5-5.1); PROTEIN TOTAL,TP 6.6 g/dL (6.4-8.2)
[2022-12-01] MEDS ORDERED: Furosemide 40 MG/4 ML VIAL IV ONE (12:57)
== END 2022-12-01 14:40 | disposition home or self-care (01) ==
LOC: VM.ED 11:28
DX: I11.0 Hypertensive heart disease with heart failure (principal); I50.9 Heart failure, unspecified; E11.9 Type 2 diabetes mellitus without complications; E78.00 Pure hypercholesterolemia, unspecified; K21.9 Gastro-esophageal reflux disease without esophagitis; Z79.4 Long term (current) use of insulin; Z79.899 Other long term (current) drug therapy; Z88.8 Allergy status to other drugs, medicaments and biological substances
CPT/HCPCS: 71046; 80053; 83880; 84484; 85025; 86140; 93005; 96374; 99285; J1940; 93010; 99284

== ENCOUNTER 2024-03-21 21:21 | Emergency (ER) | payer MEDICARE, BC ==
[2024-03-21] MEDS ORDERED: Sodium Chloride 0.9% 10 ML Syringe FLUSH PRN (21:53)
[2024-03-21] MEDS ORDERED: Ondansetron 4 MG/2 ML SDV IM ONE (21:54)
[2024-03-21] MEDS ORDERED: Sodium Chloride 0.9% 1,000 ML IV ONE (21:55)
== END 2024-03-21 21:51 | disposition home or self-care (01) ==
LOC: VM.ED 21:21
DX: Z48.00 Encounter for change or removal of nonsurgical wound dressing (principal); I10 Essential (primary) hypertension; E78.00 Pure hypercholesterolemia, unspecified; K21.9 Gastro-esophageal reflux disease without esophagitis; M19.90 Unspecified osteoarthritis, unspecified site; E11.9 Type 2 diabetes mellitus without complications; Z90.49 Acquired absence of other specified parts of digestive tract; Z90.710 Acquired absence of both cervix and uterus; Z86.73 Personal history of transient ischemic attack (TIA), and cerebral infarction without residual deficits; Z88.8 Allergy status to other drugs, medicaments and biological substances; Z79.4 Long term (current) use of insulin; Z79.82 Long term (current) use of aspirin; Z79.899 Other long term (current) drug therapy
CPT/HCPCS: 36415; 99282; 99283

== ENCOUNTER 2024-04-10 13:29 | Inpatient (IN) | payer MEDICARE, BC ==
[2024-04-10] MEDS: Sodium Chloride 0.9% 1,000 ML IV ONE (14:13)
[2024-04-10 14:26] LABS: BASOPHILS PERCENT AUTO 0.3 % (0.2-1.2); EOSINOPHILS ABSOLUTE AUTO 0.1 x10^3/uL (0.0-0.5); EOSINOPHILS PERCENT AUTO 1.7 % (0.0-4.0); HEMATOCRIT 25.4 % (33.0-47.0); HEMOGLOBIN 8.6 g/dL (12.0-16.0); IMMATURE GRAN ABSOLUTE AUTO 0.01 x10^3/uL (0.00-0.07); LYMPHOCYTES ABSOLUTE AUTO 0.1 x10^3/uL (1.0-4.8); LYMPHOCYTES PERCENT AUTO 3.7 % (25.0-50.0); MEAN CORPUSCULAR HEMOGLOBIN 32.3 pg (26.0-32.0); MEAN CORPUSCULAR HGB CONC 33.9 g/dL (32.0-36.0); MEAN CORPUSCULAR VOLUME 95.5 fL (78.0-93.0); MONOCYTES ABSOLUTE AUTO 0.1 x10^3/uL (0.0-0.8); MONOCYTES PERCENT AUTO 2.3 % (2.0-11.0); NEUTROPHILS ABSOLUTE AUTO 3.3 x10^3/uL (1.8-7.7); NEUTROPHILS PERCENT AUTO 91.7 % (50.0-80.0); RED BLOOD CELL COUNT 2.66 x10^6/uL (4.00-5.50)
[2024-04-10 14:32] LABS: PLATELET COUNT,PLT 26 x10^3/uL (130-400)
[2024-04-10 14:42] LABS: WHITE BLOOD CELL COUNT,WBC 3.6 x10^3/uL (4.0-10.0)
[2024-04-10 14:45] LABS: A/G RATIO 0.62; ALBUMIN 3.1 g/dL (3.4-5.0); BILIRUBIN TOTAL 0.4 mg/dL (0.2-1.0); CALCIUM 10.4 mg/dL (8.5-10.1); EST CRCL DRUG DOSING (CG) 6.67 mL/min; PROTEIN TOTAL,TP 8.1 g/dL (6.4-8.2)
[2024-04-10 14:50] LABS: CREATININE 4.8 mg/dL (0.55-1.02)
[2024-04-10 15:56] LABS: APPEARANCE,URINE CLOUDY (CLEAR); BILIRUBIN,URINE NEGATIVE (NEGATIVE); COLOR,URINE YELLOW (YELLOW); GLUCOSE,URINE NEGATIVE (NEGATIVE); KETONES,URINE NEGATIVE (NEGATIVE); LEUKOCYTE ESTERASE,URINE TRACE (NEGATIVE); NITRITE,URINE NEGATIVE (NEGATIVE); OCCULT BLOOD,URINE NEGATIVE (NEGATIVE); PROTEIN,URINE NEGATIVE (NEGATIVE); UROBILINOGEN,URINE 0.2 EU/dL (0.2)
[2024-04-10 16:01] LABS: RBC,URINE 0-5 /HPF (NOT SEEN); SQUAMOUS EPITHELIAL CELLS,UR FEW /HPF (NOT SEEN)
[2024-04-10 16:02] LABS: AMORPHOUS SEDIMENT,URINE FEW; BACTERIA,URINE MANY /HPF (NOT SEEN); HYALINE CASTS,URINE FEW; MUCUS,URINE NOT SEEN /LPF (NOT SEEN); RENAL EPITHELIAL CELLS,URINE OCCASIONAL /HPF (NOT SEEN)
[2024-04-10] MEDS ORDERED: Ondansetron 4 MG Tab.DIS PO PRN ×2 (16:14→17:12)
[2024-04-10] MEDS ORDERED: Al and Mag Hydroxide/Diphenhydramine/Lidocaine/Simethicone 237 ML Bottle PO PRN (16:18)
[2024-04-10] MEDS ORDERED: Sodium Chloride 0.9% 1,000 ML IV SCH (16:30)
[2024-04-10] MEDS: NS with KCl 40mEq 1,000 ML IV ONE (16:59)
[2024-04-10] MEDS ORDERED: Glucagon,Human Recombinant 1 MG Vial IM PRN (17:12)
[2024-04-10] MEDS ORDERED: 50% Dextrose in Water 50 ML Syringe IVPUSH PRN (17:12)
[2024-04-10] MEDS: Triamcinolone Acetonide 0.1% Crm 15 GM Tube TOP SCH (18:06)
[2024-04-10] MEDS: Carvedilol 3.125 MG Tab PO SCH (18:07)
[2024-04-10] MEDS: Melatonin 3 MG Tab PO SCH (21:13)
[2024-04-10] MEDS: Mirtazapine 15 MG Tab PO SCH (21:14)
[2024-04-10] MEDS: traZODone 50 MG Tab PO SCH (21:14)
[2024-04-10] MEDS: Sodium Chloride 0.9% 1,000 ML IV SCH (21:19)
[2024-04-11] MEDS: Acetaminophen 325 MG Tab PO PRN (00:43)
[2024-04-11] MEDS: Metolazone 2.5 MG Tab PO SCH (06:06)
[2024-04-11 07:16] LABS: EOSINOPHILS ABSOLUTE AUTO 0.2 x10^3/uL (0.0-0.5); EOSINOPHILS PERCENT AUTO 4.1 % (0.0-4.0); HEMATOCRIT 23.1 % (33.0-47.0); HEMOGLOBIN 7.7 g/dL (12.0-16.0); LYMPHOCYTES ABSOLUTE AUTO 0.1 x10^3/uL (1.0-4.8); LYMPHOCYTES PERCENT AUTO 2.5 % (25.0-50.0); MEAN CORPUSCULAR HEMOGLOBIN 32.2 pg (26.0-32.0); MEAN CORPUSCULAR HGB CONC 33.3 g/dL (32.0-36.0); MEAN CORPUSCULAR VOLUME 96.7 fL (78.0-93.0); MONOCYTES ABSOLUTE AUTO 0.1 x10^3/uL (0.0-0.8); NEUTROPHILS ABSOLUTE AUTO 3.6 x10^3/uL (1.8-7.7); NEUTROPHILS PERCENT AUTO 91.4 % (50.0-80.0); RED BLOOD CELL COUNT 2.39 x10^6/uL (4.00-5.50)
[2024-04-11 07:43] LABS: A/G RATIO 0.6; ALBUMIN 2.6 g/dL (3.4-5.0); BILIRUBIN TOTAL 0.4 mg/dL (0.2-1.0); CALCIUM 9.4 mg/dL (8.5-10.1); EST CRCL DRUG DOSING (CG) 9.46 mL/min; POTASSIUM,K 3.1 mmol/L (3.5-5.1); PROTEIN TOTAL,TP 6.9 g/dL (6.4-8.2)
[2024-04-11 07:44] LABS: ANION GAP 14.1 mmol/L (5-15)
[2024-04-11 07:46] LABS: PLATELET COUNT,PLT 16 x10^3/uL (130-400)
[2024-04-11 07:47] LABS: WHITE BLOOD CELL COUNT,WBC 3.9 x10^3/uL (4.0-10.0)
[2024-04-11 07:48] LABS: CREATININE 3.4 mg/dL (0.55-1.02)
[2024-04-11] MEDS: Multivitamin Tab PO SCH (08:34)
[2024-04-11] MEDS: Potassium Chloride 20 MEQ Tab.ER PO SCH (08:34)
[2024-04-11] MEDS: Magnesium Oxide 400 MG Tab PO SCH (08:35)
[2024-04-11] MEDS: Pantoprazole 40 MG Tab.CR PO SCH (08:35)
[2024-04-11] MEDS: Ferrous Sulfate 325 MG Tab PO SCH (08:35)
[2024-04-11] MEDS: SALIVA STIMULANT AGENTS COMB MM SCH (08:38)
[2024-04-11] MEDS: Insulin Glarg,Human.Rec.Analog 100 Unit/ML 10 ML Vial SUBCUT SCH (08:38)
[2024-04-11] MEDS ORDERED: Non-Formulary Medication 1 Each (Simvastatin [Zocor] 40 MG Tablet) PO SCH (09:00)
[2024-04-11 10:39] LABS: EOSINOPHILS ABSOLUTE AUTO 0.1 x10^3/uL (0.0-0.5); EOSINOPHILS PERCENT AUTO 3.1 % (0.0-4.0); IMMATURE GRAN ABSOLUTE AUTO 0.01 x10^3/uL (0.00-0.07); LYMPHOCYTES ABSOLUTE AUTO 0.1 x10^3/uL (1.0-4.8); LYMPHOCYTES PERCENT AUTO 2.6 % (25.0-50.0); MEAN CORPUSCULAR HEMOGLOBIN 32.5 pg (26.0-32.0); MEAN CORPUSCULAR HGB CONC 33.3 g/dL (32.0-36.0); MEAN CORPUSCULAR VOLUME 97.6 fL (78.0-93.0); MONOCYTES ABSOLUTE AUTO 0.1 x10^3/uL (0.0-0.8); MONOCYTES PERCENT AUTO 1.3 % (2.0-11.0); NEUTROPHILS ABSOLUTE AUTO 3.6 x10^3/uL (1.8-7.7); NEUTROPHILS PERCENT AUTO 92.7 % (50.0-80.0); RED BLOOD CELL COUNT 2.46 x10^6/uL (4.00-5.50)
[2024-04-11 10:43] LABS: PLATELET COUNT,PLT 17 x10^3/uL (130-400)
[2024-04-11 10:44] LABS: WHITE BLOOD CELL COUNT,WBC 3.9 x10^3/uL (4.0-10.0)
[2024-04-11] MEDS: Amoxicillin 250 MG/5 ML Susp 150 ML Bottle PO SCH (17:57)
[2024-04-11] MEDS ORDERED: Potassium Chloride 20 MEQ Tab.ER PO SCH (18:00)
[2024-04-12 07:56] LABS: EOSINOPHILS ABSOLUTE AUTO 0.2 x10^3/uL (0.0-0.5); EOSINOPHILS PERCENT AUTO 3.8 % (0.0-4.0); HEMATOCRIT 27.7 % (33.0-47.0); HEMOGLOBIN 8.9 g/dL (12.0-16.0); IMMATURE GRAN ABSOLUTE AUTO 0.01 x10^3/uL (0.00-0.07); LYMPHOCYTES PERCENT AUTO 3.8 % (25.0-50.0); MEAN CORPUSCULAR HEMOGLOBIN 31.7 pg (26.0-32.0); MEAN CORPUSCULAR HGB CONC 32.1 g/dL (32.0-36.0); MEAN CORPUSCULAR VOLUME 98.6 fL (78.0-93.0); MONOCYTES ABSOLUTE AUTO 0.1 x10^3/uL (0.0-0.8); NEUTROPHILS ABSOLUTE AUTO 4.1 x10^3/uL (1.8-7.7); NEUTROPHILS PERCENT AUTO 90.2 % (50.0-80.0); RED BLOOD CELL COUNT 2.81 x10^6/uL (4.00-5.50); WHITE BLOOD CELL COUNT,WBC 4.5 x10^3/uL (4.0-10.0)
[2024-04-12 08:13] LABS: LYMPHOCYTES ABSOLUTE AUTO 0.2 x10^3/uL (1.0-4.8)
[2024-04-12 08:15] LABS: PLATELET COUNT,PLT 38 x10^3/uL (130-400)
[2024-04-12 08:19] LABS: A/G RATIO 0.59; ANION GAP 13.5 mmol/L (5-15); BILIRUBIN TOTAL 0.4 mg/dL (0.2-1.0); CALCIUM 10.7 mg/dL (8.5-10.1); CREATININE 2.7 mg/dL (0.55-1.02); EST CRCL DRUG DOSING (CG) 11.91 mL/min; POTASSIUM,K 4.5 mmol/L (3.5-5.1); PROTEIN TOTAL,TP 8.1 g/dL (6.4-8.2)
[2024-04-12] MEDS: Potassium Chloride 20 MEQ Tab.ER PO SCH (08:26)
== END 2024-04-12 11:30 | disposition home or self-care (01) | DRG 809 ==
LOC: VM.ED 13:29 → VM.MS 16:16
PROVIDERS: ADMIT Family Medicine; ATTEND Nurse Practitioner Family
PROC: 30233R1 Transfusion of Nonautologous Platelets into Peripheral Vein, Percutaneous Approach (ICD-10-PCS; principal; 2024-04-11)
DX: D61.810 Antineoplastic chemotherapy induced pancytopenia (principal); C84.90 Mature T/NK-cell lymphomas, unspecified, unspecified site; D75.839 Thrombocytosis, unspecified; N17.9 Acute kidney failure, unspecified; I42.8 Other cardiomyopathies; I10 Essential (primary) hypertension; I13.0 Hypertensive heart and chronic kidney disease with heart failure and stage 1 through stage 4 chronic kidney disease, or unspecified chronic kidney disease; D84.821 Immunodeficiency due to drugs; E11.9 Type 2 diabetes mellitus without complications; N39.0 Urinary tract infection, site not specified; N18.4 Chronic kidney disease, stage 4 (severe); D62 Acute posthemorrhagic anemia; Z66 Do not resuscitate; Z51.5 Encounter for palliative care; E78.00 Pure hypercholesterolemia, unspecified; I49.5 Sick sinus syndrome; K21.9 Gastro-esophageal reflux disease without esophagitis; M19.90 Unspecified osteoarthritis, unspecified site; E87.6 Hypokalemia; D69.6 Thrombocytopenia, unspecified; K12.1 Other forms of stomatitis; K12.30 Oral mucositis (ulcerative), unspecified; E86.0 Dehydration; E11.22 Type 2 diabetes mellitus with diabetic chronic kidney disease; K12.0 Recurrent oral aphthae; T45.1X5A Adverse effect of antineoplastic and immunosuppressive drugs, initial encounter; G47.00 Insomnia, unspecified; I50.9 Heart failure, unspecified; D69.59 Other secondary thrombocytopenia; Z88.8 Allergy status to other drugs, medicaments and biological substances; Z79.899 Other long term (current) drug therapy; Z79.4 Long term (current) use of insulin; Z95.0 Presence of cardiac pacemaker; Z87.19 Personal history of other diseases of the digestive system; Z86.16 Personal history of COVID-19; Z98.49 Cataract extraction status, unspecified eye; Z98.890 Other specified postprocedural states; Z90.49 Acquired absence of other specified parts of digestive tract; Z90.710 Acquired absence of both cervix and uterus
CPT/HCPCS: 36415; 80053; 81001; 85025; 87086; 87088; 87186; 96360; 96361; 99284; 99285; J7030; 36430; 82947; 83735; 84132; 86850; 86900; 86901; 97161-GP; 97165-GO; 97535-GO; 99238; A9270-GY; J1815-GY; J3480; P9034

== ENCOUNTER 2025-01-16 13:51 | Inpatient (IN) | payer MEDICARE, BC ==
[2025-01-16 14:15] LABS: RED BLOOD CELL COUNT 1.99 x10^6/uL (4.00-5.50)
[2025-01-16 14:22] LABS: WHITE BLOOD CELL COUNT,WBC 0.6 x10^3/uL (4.0-10.0)
[2025-01-16 14:23] LABS: PLATELET COUNT,PLT 12 x10^3/uL (130-400)
[2025-01-16 14:31] LABS: A/G RATIO 0.65; ALANINE AMINOTRANSFERASE,ALT 51.0 U/L (14-59); ASPARTATE AMNIOTRANSFERASE,AST 35.0 U/L (15-37); BILIRUBIN TOTAL 0.5 mg/dL (0.2-1.0); CARBON DIOXIDE,CO2 30.0 mmol/L (21-32); CHLORIDE,CL 97.0 mmol/L (98-107); EST CRCL DRUG DOSING (CG) 7.85 mL/min; GLUCOSE RANDOM 166.0 mg/dL (70-99); POTASSIUM,K 3.3 mmol/L (3.5-5.1); PROTEIN TOTAL,TP 7.1 g/dL (6.4-8.2); SODIUM,NA 139.0 mmol/L (136-145)
[2025-01-16 14:32] LABS: ESTIMATED GFR 10.0 mL/min (>=60)
[2025-01-16 14:34] LABS: BLOOD UREA NITROGEN,BUN 112.0 mg/dL (7-18)
[2025-01-16 14:35] LABS: CREATININE 4.1 mg/dL (0.55-1.02)
[2025-01-16 14:44] LABS: EOSINOPHILS ABSOLUTE MAN 0.1 x10^3/uL (0.0-0.5); EOSINOPHILS PERCENT MAN 10 % (0-4); LYMPHOCYTES ABSOLUTE MAN 0.1 x10^3/uL (1.0-4.8); LYMPHOCYTES PERCENT MAN 13 % (25-50); MONOCYTES ABSOLUTE MAN 0.0 x10^3/uL (0.0-0.8); MONOCYTES PERCENT MAN 6 % (2-11); NEUTROPHILS ABSOLUTE MAN 0.4 x10^3/uL (1.8-7.7); PLATELET COUNT ESTIMATE MARKED DEC; SEG NEUTROPHILS PERCENT MAN 71 % (50-80)
[2025-01-16] MEDS ORDERED: 50% Dextrose in Water 50 ML Syringe IVPUSH PRN (16:41)
[2025-01-16] MEDS ORDERED: Ondansetron 4 MG/2 ML SDV IV PRN (16:54)
[2025-01-16] MEDS ORDERED: SALIVA STIMULANT AGENTS COMB MM PRN (16:58)
[2025-01-16] MEDS: MAGIC MOUTHWASH PO PRN (20:33)
[2025-01-16 20:58] LABS: RED BLOOD CELL COUNT 2.64 x10^6/uL (4.00-5.50)
[2025-01-16 21:02] LABS: CARBON DIOXIDE,CO2 30.0 mmol/L (21-32); CHLORIDE,CL 97.0 mmol/L (98-107); EST CRCL DRUG DOSING (CG) 8.47 mL/min; GLUCOSE RANDOM 131.0 mg/dL (70-99); POTASSIUM,K 3.3 mmol/L (3.5-5.1); SODIUM,NA 139.0 mmol/L (136-145)
[2025-01-16 21:06] LABS: BLOOD UREA NITROGEN,BUN 109.0 mg/dL (7-18); ESTIMATED GFR 11.0 mL/min (>=60)
[2025-01-16 21:07] LABS: CREATININE 3.8 mg/dL (0.55-1.02); WHITE BLOOD CELL COUNT,WBC 0.7 x10^3/uL (4.0-10.0)
[2025-01-16 21:08] LABS: PLATELET COUNT,PLT 18 x10^3/uL (130-400)
[2025-01-16 21:15] LABS: EOSINOPHILS ABSOLUTE MAN 0.1 x10^3/uL (0.0-0.5); EOSINOPHILS PERCENT MAN 15 % (0-4); LYMPHOCYTES ABSOLUTE MAN 0.1 x10^3/uL (1.0-4.8); LYMPHOCYTES PERCENT MAN 10 % (25-50); MONOCYTES ABSOLUTE MAN 0.0 x10^3/uL (0.0-0.8); MONOCYTES PERCENT MAN 6 % (2-11); NEUTROPHILS ABSOLUTE MAN 0.5 x10^3/uL (1.8-7.7); PLATELET COUNT ESTIMATE MARKED DEC; SEG NEUTROPHILS PERCENT MAN 69 % (50-80)
[2025-01-17 08:00] LABS: RED BLOOD CELL COUNT 2.56 x10^6/uL (4.00-5.50)
[2025-01-17 08:11] LABS: PLATELET COUNT,PLT 10 x10^3/uL (130-400); WHITE BLOOD CELL COUNT,WBC 0.4 x10^3/uL (4.0-10.0)
[2025-01-17 08:26] LABS: CARBON DIOXIDE,CO2 28.0 mmol/L (21-32); CHLORIDE,CL 99.0 mmol/L (98-107); EST CRCL DRUG DOSING (CG) 8.94 mL/min; GLUCOSE RANDOM 177.0 mg/dL (70-99); POTASSIUM,K 3.1 mmol/L (3.5-5.1); SODIUM,NA 141.0 mmol/L (136-145)
[2025-01-17 08:28] LABS: BLOOD UREA NITROGEN,BUN 102.0 mg/dL (7-18); CREATININE 3.6 mg/dL (0.55-1.02); ESTIMATED GFR 12.0 mL/min (>=60)
[2025-01-17 08:32] LABS: BAND PERCENT MAN 2 % (0-6); EOSINOPHILS ABSOLUTE MAN 0.1 x10^3/uL (0.0-0.5); EOSINOPHILS PERCENT MAN 15 % (0-4); LYMPHOCYTES ABSOLUTE MAN 0.0 x10^3/uL (1.0-4.8); LYMPHOCYTES PERCENT MAN 8 % (25-50); MONOCYTES ABSOLUTE MAN 0.0 x10^3/uL (0.0-0.8); MONOCYTES PERCENT MAN 5 % (2-11); NEUTROPHILS ABSOLUTE MAN 0.3 x10^3/uL (1.8-7.7); PLATELET COUNT ESTIMATE MARKED DEC; SEG NEUTROPHILS PERCENT MAN 70 % (50-80)
[2025-01-17] MEDS: Insulin Glarg,Human.Rec.Analog 100 Unit/ML 10 ML Vial SUBCUT SCH (09:01)
[2025-01-17] MEDS: NS with KCl 40mEq 1,000 ML IV SCH (11:57)
[2025-01-18 08:14] LABS: RED BLOOD CELL COUNT 2.36 x10^6/uL (4.00-5.50)
[2025-01-18 08:16] LABS: PLATELET COUNT,PLT 45 x10^3/uL (130-400); WHITE BLOOD CELL COUNT,WBC 0.4 x10^3/uL (4.0-10.0)
[2025-01-18 08:21] LABS: A/G RATIO 0.58; ALANINE AMINOTRANSFERASE,ALT 32.0 U/L (14-59); ASPARTATE AMNIOTRANSFERASE,AST 20.0 U/L (15-37); BILIRUBIN TOTAL 0.6 mg/dL (0.2-1.0); CARBON DIOXIDE,CO2 29.0 mmol/L (21-32); CHLORIDE,CL 108.0 mmol/L (98-107); EST CRCL DRUG DOSING (CG) 10.38 mL/min; GLUCOSE RANDOM 174.0 mg/dL (70-99); POTASSIUM,K 3.6 mmol/L (3.5-5.1); PROTEIN TOTAL,TP 7.1 g/dL (6.4-8.2); SODIUM,NA 149.0 mmol/L (136-145)
[2025-01-18 08:24] LABS: BLOOD UREA NITROGEN,BUN 91.0 mg/dL (7-18); CREATININE 3.1 mg/dL (0.55-1.02); ESTIMATED GFR 14.0 mL/min (>=60)
[2025-01-18 08:37] LABS: BAND PERCENT MAN 2 % (0-6); EOSINOPHILS ABSOLUTE MAN 0.1 x10^3/uL (0.0-0.5); EOSINOPHILS PERCENT MAN 22 % (0-4); LYMPHOCYTES ABSOLUTE MAN 0.0 x10^3/uL (1.0-4.8); LYMPHOCYTES PERCENT MAN 11 % (25-50); MONOCYTES ABSOLUTE MAN 0.0 x10^3/uL (0.0-0.8); MONOCYTES PERCENT MAN 9 % (2-11); NEUTROPHILS ABSOLUTE MAN 0.2 x10^3/uL (1.8-7.7); PLATELET COUNT ESTIMATE MARKED DEC; SEG NEUTROPHILS PERCENT MAN 56 % (50-80)
[2025-01-18 09:51] LABS: APPEARANCE,URINE CLEAR (CLEAR); GLUCOSE,URINE NEGATIVE (NEGATIVE); OCCULT BLOOD,URINE NEGATIVE (NEGATIVE)
[2025-01-18 09:58] LABS: SQUAMOUS EPITHELIAL CELLS,UR RARE /HPF (NOT SEEN)
[2025-01-18] MEDS: valACYclovir 1,000 MG Tab PO SCH (12:06)
[2025-01-18 15:31] LABS: RED BLOOD CELL COUNT 2.44 x10^6/uL (4.00-5.50)
[2025-01-18 15:32] LABS: PLATELET COUNT,PLT 38 x10^3/uL (130-400); WHITE BLOOD CELL COUNT,WBC 0.5 x10^3/uL (4.0-10.0)
[2025-01-18 15:51] LABS: BAND PERCENT MAN 7 % (0-6); EOSINOPHILS ABSOLUTE MAN 0.1 x10^3/uL (0.0-0.5); EOSINOPHILS PERCENT MAN 19 % (0-4); LYMPHOCYTES ABSOLUTE MAN 0.1 x10^3/uL (1.0-4.8); LYMPHOCYTES PERCENT MAN 17 % (25-50); MONOCYTES ABSOLUTE MAN 0.1 x10^3/uL (0.0-0.8); MONOCYTES PERCENT MAN 12 % (2-11); NEUTROPHILS ABSOLUTE MAN 0.3 x10^3/uL (1.8-7.7); PLATELET COUNT ESTIMATE MARKED DEC; SEG NEUTROPHILS PERCENT MAN 45 % (50-80)
[2025-01-19 07:13] LABS: RED BLOOD CELL COUNT 2.62 x10^6/uL (4.00-5.50)
[2025-01-19 07:16] LABS: PLATELET COUNT,PLT 41 x10^3/uL (130-400); WHITE BLOOD CELL COUNT,WBC 0.8 x10^3/uL (4.0-10.0)
[2025-01-19 07:34] LABS: A/G RATIO 0.51; ALANINE AMINOTRANSFERASE,ALT 25.0 U/L (14-59); ASPARTATE AMNIOTRANSFERASE,AST 18.0 U/L (15-37); BILIRUBIN TOTAL 0.5 mg/dL (0.2-1.0); CARBON DIOXIDE,CO2 29.0 mmol/L (21-32); CHLORIDE,CL 107.0 mmol/L (98-107); CREATININE 2.9 mg/dL (0.55-1.02); EST CRCL DRUG DOSING (CG) 11.09 mL/min; GLUCOSE RANDOM 189.0 mg/dL (70-99); POTASSIUM,K 3.2 mmol/L (3.5-5.1); PROTEIN TOTAL,TP 7.4 g/dL (6.4-8.2); SODIUM,NA 146.0 mmol/L (136-145)
[2025-01-19 07:35] LABS: ESTIMATED GFR 15.0 mL/min (>=60)
[2025-01-19 07:36] LABS: BLOOD UREA NITROGEN,BUN 79.0 mg/dL (7-18)
[2025-01-19 07:41] LABS: BAND PERCENT MAN 3 % (0-6); EOSINOPHILS ABSOLUTE MAN 0.1 x10^3/uL (0.0-0.5); EOSINOPHILS PERCENT MAN 14 % (0-4); LYMPHOCYTES ABSOLUTE MAN 0.1 x10^3/uL (1.0-4.8); LYMPHOCYTES PERCENT MAN 13 % (25-50); MONOCYTES ABSOLUTE MAN 0.2 x10^3/uL (0.0-0.8); MONOCYTES PERCENT MAN 26 % (2-11); NEUTROPHILS ABSOLUTE MAN 0.4 x10^3/uL (1.8-7.7); NRBC MANUAL 2 /100WBC (0-5); PLATELET COUNT ESTIMATE MARKED DEC; SEG NEUTROPHILS PERCENT MAN 44 % (50-80)
[2025-01-19] MEDS: Potassium Chloride 10 MEQ Tab.ER PO ONE (08:42)
[2025-01-19] MEDS: PEGFILGRASTIM JMDB 6 MG/0.6 ML SUBCUT ONE (17:28)
[2025-01-20 06:38] LABS: PLATELET COUNT,PLT 75 x10^3/uL (130-400); RED BLOOD CELL COUNT 2.58 x10^6/uL (4.00-5.50); WHITE BLOOD CELL COUNT,WBC 2.3 x10^3/uL (4.0-10.0)
[2025-01-20 06:55] LABS: CARBON DIOXIDE,CO2 29.0 mmol/L (21-32); CHLORIDE,CL 110.0 mmol/L (98-107); CREATININE 3.0 mg/dL (0.55-1.02); EST CRCL DRUG DOSING (CG) 10.72 mL/min; GLUCOSE RANDOM 183.0 mg/dL (70-99); POTASSIUM,K 3.9 mmol/L (3.5-5.1); SODIUM,NA 148.0 mmol/L (136-145)
[2025-01-20 06:57] LABS: BLOOD UREA NITROGEN,BUN 73.0 mg/dL (7-18); ESTIMATED GFR 15.0 mL/min (>=60)
[2025-01-20 07:11] LABS: BAND PERCENT MAN 8 % (0-6); EOSINOPHILS ABSOLUTE MAN 0.1 x10^3/uL (0.0-0.5); EOSINOPHILS PERCENT MAN 6 % (0-4); LYMPHOCYTES ABSOLUTE MAN 0.1 x10^3/uL (1.0-4.8); LYMPHOCYTES PERCENT MAN 5 % (25-50); MONOCYTES ABSOLUTE MAN 0.5 x10^3/uL (0.0-0.8); MONOCYTES PERCENT MAN 22 % (2-11); NEUTROPHILS ABSOLUTE MAN 1.5 x10^3/uL (1.8-7.7); NRBC MANUAL 2 /100WBC (0-5); SEG NEUTROPHILS PERCENT MAN 59 % (50-80)
[2025-01-20 07:12] LABS: PLATELET COUNT ESTIMATE DECREASED
== END 2025-01-20 13:00 | disposition swing bed (61) | DRG 808 ==
LOC: VM.ED 13:51 → VM.MS 14:45
PROVIDERS: ADMIT Nurse Practitioner Family; ATTEND Internal Medicine
PROC: 30233N1 Transfusion of Nonautologous Red Blood Cells into Peripheral Vein, Percutaneous Approach (ICD-10-PCS; principal; 2025-01-16)
PROC: 30233R1 Transfusion of Nonautologous Platelets into Peripheral Vein, Percutaneous Approach (ICD-10-PCS; 2025-01-16)
PROC: 3E03329 Introduction of Other Anti-infective into Peripheral Vein, Percutaneous Approach (ICD-10-PCS; 2025-01-17)
DX: I12.9 Hypertensive chronic kidney disease with stage 1 through stage 4 chronic kidney disease, or unspecified chronic kidney disease (principal); I50.9 Heart failure, unspecified; D61.810 Antineoplastic chemotherapy induced pancytopenia; E43 Unspecified severe protein-calorie malnutrition; J69.0 Pneumonitis due to inhalation of food and vomit; N17.9 Acute kidney failure, unspecified; C84.A0 Cutaneous T-cell lymphoma, unspecified, unspecified site; I50.32 Chronic diastolic (congestive) heart failure; I13.0 Hypertensive heart and chronic kidney disease with heart failure and stage 1 through stage 4 chronic kidney disease, or unspecified chronic kidney disease; N18.4 Chronic kidney disease, stage 4 (severe); E87.0 Hyperosmolality and hypernatremia; Z90.49 Acquired absence of other specified parts of digestive tract; Z66 Do not resuscitate; E11.22 Type 2 diabetes mellitus with diabetic chronic kidney disease; I48.91 Unspecified atrial fibrillation; K21.9 Gastro-esophageal reflux disease without esophagitis; M19.90 Unspecified osteoarthritis, unspecified site; Z96.643 Presence of artificial hip joint, bilateral; T45.1X5A Adverse effect of antineoplastic and immunosuppressive drugs, initial encounter; D63.1 Anemia in chronic kidney disease; E87.6 Hypokalemia; G47.00 Insomnia, unspecified; E78.00 Pure hypercholesterolemia, unspecified; K12.1 Other forms of stomatitis; E86.0 Dehydration; D69.6 Thrombocytopenia, unspecified; K12.30 Oral mucositis (ulcerative), unspecified; K12.0 Recurrent oral aphthae; D70.9 Neutropenia, unspecified; Z95.0 Presence of cardiac pacemaker; Z68.21 Body mass index [BMI] 21.0-21.9, adult; Z87.19 Personal history of other diseases of the digestive system; Z86.73 Personal history of transient ischemic attack (TIA), and cerebral infarction without residual deficits; Z98.890 Other specified postprocedural states; Z90.710 Acquired absence of both cervix and uterus; Z79.4 Long term (current) use of insulin; Z98.49 Cataract extraction status, unspecified eye; Z88.8 Allergy status to other drugs, medicaments and biological substances; Z87.440 Personal history of urinary (tract) infections; Z92.21 Personal history of antineoplastic chemotherapy; Z79.1 Long term (current) use of non-steroidal anti-inflammatories (NSAID); Z79.899 Other long term (current) drug therapy; Y92.89 Other specified places as the place of occurrence of the external cause
CPT/HCPCS: 36415; 36430; 71045; 80048; 80053; 81001; 82274; 82947; 83605; 83735; 84550; 85025; 86850; 86900; 86901; 86920; 86922; 97110-GP; 97116-GP; 97162-GP; 97165-GO; 97535-GO; 99232-GT; 99233-GT; 99284; 99285; A9270-GY; J0456; J0696; J1171; J1815-GY; J2470; J2543; J3480; J7050; J7070; P9016; P9034; Q5108

== ENCOUNTER 2025-01-20 11:27 | Inpatient (IN) | payer MEDICARE, BC ==
[2025-01-20] MEDS ORDERED: 50% Dextrose in Water 50 ML Syringe IVPUSH PRN (16:15)
[2025-01-20] MEDS: MAGIC MOUTHWASH PO PRN (20:56)
[2025-01-20] MEDS: Amoxicillin/Clavulanate K 600-42.9 MG/5 ML Susp 125 ML Bottle PO SCH ×2 (20:59→21:30)
[2025-01-20] MEDS: Amoxicillin/Clavulanate K 600-42.9 MG/5 ML Susp 125 ML Bottle ONE (21:24)
[2025-01-21 07:00] LABS: PLATELET COUNT,PLT 188 x10^3/uL (130-400); RED BLOOD CELL COUNT 2.57 x10^6/uL (4.00-5.50); WHITE BLOOD CELL COUNT,WBC 6.9 x10^3/uL (4.0-10.0)
[2025-01-21 07:16] LABS: CARBON DIOXIDE,CO2 30.0 mmol/L (21-32); CHLORIDE,CL 112.0 mmol/L (98-107); EST CRCL DRUG DOSING (CG) 10.05 mL/min; GLUCOSE RANDOM 131.0 mg/dL (70-99); SODIUM,NA 151.0 mmol/L (136-145)
[2025-01-21 07:20] LABS: BAND PERCENT MAN 10 % (0-6); EOSINOPHILS ABSOLUTE MAN 0.3 x10^3/uL (0.0-0.5); EOSINOPHILS PERCENT MAN 4 % (0-4); LYMPHOCYTES ABSOLUTE MAN 0.5 x10^3/uL (1.0-4.8); LYMPHOCYTES PERCENT MAN 7 % (25-50); MONOCYTES ABSOLUTE MAN 0.8 x10^3/uL (0.0-0.8); MONOCYTES PERCENT MAN 12 % (2-11); MYELOCYTE PERCENT MAN 1 % (0); NEUTROPHILS ABSOLUTE MAN 5.2 x10^3/uL (1.8-7.7); NRBC MANUAL 2 /100WBC (0-5); PLATELET COUNT ESTIMATE ADEQUATE; SEG NEUTROPHILS PERCENT MAN 66 % (50-80)
[2025-01-21 07:21] LABS: POTASSIUM,K 2.9 mmol/L (3.5-5.1)
[2025-01-21 07:22] LABS: BLOOD UREA NITROGEN,BUN 76.0 mg/dL (7-18); CREATININE 3.2 mg/dL (0.55-1.02); ESTIMATED GFR 13.0 mL/min (>=60)
[2025-01-21] MEDS: Insulin Glarg,Human.Rec.Analog 100 Unit/ML 10 ML Vial SUBCUT SCH (09:00)
[2025-01-21] MEDS: valACYclovir 1,000 MG Tab PO SCH (09:05)
[2025-01-21] MEDS: Potassium Chloride 10 MEQ Tab.ER PO SCH (09:05)
[2025-01-21] MEDS: SALIVA STIMULANT AGENTS COMB MM PRN (09:23)
[2025-01-21] MEDS: Sodium Chloride 0.45% with KCl 1,000 ML IV SCH (11:30)
[2025-01-21] MEDS: methylPREDNISolone Sodium Succinate 40 MG/1 ML SDV IVPUSH ONE (13:36)
[2025-01-22 06:46] LABS: PLATELET COUNT,PLT 322 x10^3/uL (130-400); RED BLOOD CELL COUNT 2.59 x10^6/uL (4.00-5.50)
[2025-01-22 06:58] LABS: CARBON DIOXIDE,CO2 23.0 mmol/L (21-32); CHLORIDE,CL 112.0 mmol/L (98-107); EST CRCL DRUG DOSING (CG) 8.25 mL/min; GLUCOSE RANDOM 121.0 mg/dL (70-99); POTASSIUM,K 3.8 mmol/L (3.5-5.1); SODIUM,NA 151.0 mmol/L (136-145)
[2025-01-22 07:00] LABS: WHITE BLOOD CELL COUNT,WBC 23.6 x10^3/uL (4.0-10.0)
[2025-01-22 07:02] LABS: ESTIMATED GFR 11.0 mL/min (>=60)
[2025-01-22 07:03] LABS: BLOOD UREA NITROGEN,BUN 84.0 mg/dL (7-18); CREATININE 3.9 mg/dL (0.55-1.02)
[2025-01-22 07:04] LABS: BAND PERCENT MAN 9 % (0-6); LYMPHOCYTES ABSOLUTE MAN 1.2 x10^3/uL (1.0-4.8); LYMPHOCYTES PERCENT MAN 5 % (25-50); MONOCYTES ABSOLUTE MAN 3.8 x10^3/uL (0.0-0.8); MONOCYTES PERCENT MAN 16 % (2-11); NEUTROPHILS ABSOLUTE MAN 18.6 x10^3/uL (1.8-7.7); SEG NEUTROPHILS PERCENT MAN 70 % (50-80)
[2025-01-22 07:10] LABS: PLATELET COUNT ESTIMATE ADEQUATE
[2025-01-23 00:31] LABS: CARBON DIOXIDE,CO2 24.0 mmol/L (21-32); CHLORIDE,CL 110.0 mmol/L (98-107); EST CRCL DRUG DOSING (CG) 7.48 mL/min; GLUCOSE RANDOM 133.0 mg/dL (70-99); POTASSIUM,K 3.8 mmol/L (3.5-5.1); SODIUM,NA 147.0 mmol/L (136-145)
[2025-01-23 00:35] LABS: ESTIMATED GFR 9.0 mL/min (>=60)
[2025-01-23 00:37] LABS: BLOOD UREA NITROGEN,BUN 89.0 mg/dL (7-18); CREATININE 4.3 mg/dL (0.55-1.02)
[2025-01-23 00:51] LABS: PRO B-TYPE NATRIUR PEPT,BNPPRO 54366.0 pg/mL (<=450)
[2025-01-23 06:40] LABS: PLATELET COUNT,PLT 368 x10^3/uL (130-400); RED BLOOD CELL COUNT 2.54 x10^6/uL (4.00-5.50)
[2025-01-23 06:41] LABS: WHITE BLOOD CELL COUNT,WBC 37.8 x10^3/uL (4.0-10.0)
[2025-01-23 06:57] LABS: A/G RATIO 0.56; ALANINE AMINOTRANSFERASE,ALT 17.0 U/L (14-59); ASPARTATE AMNIOTRANSFERASE,AST 41.0 U/L (15-37); BILIRUBIN TOTAL 0.4 mg/dL (0.2-1.0); CARBON DIOXIDE,CO2 24.0 mmol/L (21-32); CHLORIDE,CL 110.0 mmol/L (98-107); EST CRCL DRUG DOSING (CG) 7.15 mL/min; GLUCOSE RANDOM 128.0 mg/dL (70-99); POTASSIUM,K 3.8 mmol/L (3.5-5.1); PROTEIN TOTAL,TP 6.7 g/dL (6.4-8.2); SODIUM,NA 149.0 mmol/L (136-145)
[2025-01-23 07:02] LABS: ESTIMATED GFR 9.0 mL/min (>=60)
[2025-01-23 07:03] LABS: BLOOD UREA NITROGEN,BUN 96.0 mg/dL (7-18); CREATININE 4.5 mg/dL (0.55-1.02)
[2025-01-23 07:09] LABS: BAND PERCENT MAN 12 % (0-6); BLASTS PERCENT MAN 2 % (0); LYMPHOCYTES ABSOLUTE MAN 1.1 x10^3/uL (1.0-4.8); LYMPHOCYTES PERCENT MAN 3 % (25-50); METAMYELOCYTE PERCENT MAN 8 % (0); MONOCYTES ABSOLUTE MAN 6.4 x10^3/uL (0.0-0.8); MONOCYTES PERCENT MAN 17 % (2-11); MYELOCYTE PERCENT MAN 4 % (0); NEUTROPHILS ABSOLUTE MAN 22.7 x10^3/uL (1.8-7.7); PROMYELOCYTE PERCENT MAN 6 % (0); SEG NEUTROPHILS PERCENT MAN 48 % (50-80)
[2025-01-23 07:13] LABS: PLATELET COUNT ESTIMATE ADEQUATE
[2025-01-23] MEDS: Furosemide 100 MG/10 ML SDV IV ONE (08:50)
[2025-01-23 10:22] LABS: APPEARANCE,URINE SLIGHTLY CLOUDY (CLEAR); GLUCOSE,URINE NEGATIVE (NEGATIVE); OCCULT BLOOD,URINE LARGE (NEGATIVE)
[2025-01-23 10:33] LABS: SQUAMOUS EPITHELIAL CELLS,UR MODERATE /HPF (NOT SEEN)
== END 2025-01-23 10:20 | disposition critical access hospital (66) | DRG 947 ==
LOC: VM.MS 13:01 → UNDOADMIN 13:13
PROVIDERS: ADMIT Internal Medicine; ATTEND Internal Medicine
PROC: 0T9B70Z Drainage of Bladder with Drainage Device, Via Natural or Artificial Opening (ICD-10-PCS; principal; 2025-01-22)
PROC: 3E03329 Introduction of Other Anti-infective into Peripheral Vein, Percutaneous Approach (ICD-10-PCS; 2025-01-22)
DX: R53.1 Weakness (principal); D61.810 Antineoplastic chemotherapy induced pancytopenia; J69.0 Pneumonitis due to inhalation of food and vomit; N17.9 Acute kidney failure, unspecified; E46 Unspecified protein-calorie malnutrition; I50.42 Chronic combined systolic (congestive) and diastolic (congestive) heart failure; I13.0 Hypertensive heart and chronic kidney disease with heart failure and stage 1 through stage 4 chronic kidney disease, or unspecified chronic kidney disease; C84.A0 Cutaneous T-cell lymphoma, unspecified, unspecified site; E87.0 Hyperosmolality and hypernatremia; Z66 Do not resuscitate; N18.9 Chronic kidney disease, unspecified; E11.9 Type 2 diabetes mellitus without complications; E78.5 Hyperlipidemia, unspecified; M19.90 Unspecified osteoarthritis, unspecified site; T45.1X5A Adverse effect of antineoplastic and immunosuppressive drugs, initial encounter; E86.0 Dehydration; K12.0 Recurrent oral aphthae; E87.6 Hypokalemia; K21.9 Gastro-esophageal reflux disease without esophagitis; G47.00 Insomnia, unspecified; D63.0 Anemia in neoplastic disease; Z86.73 Personal history of transient ischemic attack (TIA), and cerebral infarction without residual deficits; Z88.8 Allergy status to other drugs, medicaments and biological substances; Z79.4 Long term (current) use of insulin; Z87.19 Personal history of other diseases of the digestive system; Z95.0 Presence of cardiac pacemaker; Z68.22 Body mass index [BMI] 22.0-22.9, adult; Z90.49 Acquired absence of other specified parts of digestive tract; Z90.710 Acquired absence of both cervix and uterus; Z98.51 Tubal ligation status; Z98.890 Other specified postprocedural states
CPT/HCPCS: 36415; 51702; 71045; 80048; 80053; 81001; 82947; 83880; 84550; 85025; 97110-GP; 97116-GP; 97535-GO; A9270-GY; J1815-GY; J1938; J2543; J2919; J3480; J7030; J7512; Q3014

== ENCOUNTER 2025-01-23 08:41 | Inpatient (IN) | payer MEDICARE, BC ==
[2025-01-23] MEDS ORDERED: 50% Dextrose in Water 50 ML Syringe IVPUSH PRN (10:19)
[2025-01-23] MEDS: MAGIC MOUTHWASH PO PRN (14:42)
[2025-01-23] MEDS: methylPREDNISolone Sodium Succinate 40 MG/1 ML SDV IVPUSH ONE (15:45)
[2025-01-23] MEDS: Furosemide 100 MG/10 ML SDV IV ONE (17:13)
[2025-01-23] MEDS: SALIVA STIMULANT AGENTS COMB MM PRN (20:38)
[2025-01-24 08:12] LABS: PLATELET COUNT,PLT 385 x10^3/uL (130-400); RED BLOOD CELL COUNT 2.73 x10^6/uL (4.00-5.50)
[2025-01-24 08:26] LABS: WHITE BLOOD CELL COUNT,WBC 58.1 x10^3/uL (4.0-10.0)
[2025-01-24 08:36] LABS: A/G RATIO 0.57; ALANINE AMINOTRANSFERASE,ALT 20.0 U/L (14-59); ASPARTATE AMNIOTRANSFERASE,AST 39.0 U/L (15-37); BILIRUBIN TOTAL 0.5 mg/dL (0.2-1.0); CARBON DIOXIDE,CO2 22.0 mmol/L (21-32); CHLORIDE,CL 110.0 mmol/L (98-107); EST CRCL DRUG DOSING (CG) 6.07 mL/min; GLUCOSE RANDOM 182.0 mg/dL (70-99); POTASSIUM,K 3.9 mmol/L (3.5-5.1); PROTEIN TOTAL,TP 6.9 g/dL (6.4-8.2); SODIUM,NA 151.0 mmol/L (136-145)
[2025-01-24 08:38] LABS: BAND PERCENT MAN 11 % (0-6); LYMPHOCYTES ABSOLUTE MAN 2.9 x10^3/uL (1.0-4.8); LYMPHOCYTES PERCENT MAN 5 % (25-50); METAMYELOCYTE PERCENT MAN 5 % (0); MONOCYTES ABSOLUTE MAN 7.0 x10^3/uL (0.0-0.8); MONOCYTES PERCENT MAN 12 % (2-11); MYELOCYTE PERCENT MAN 1 % (0); NEUTROPHILS ABSOLUTE MAN 44.7 x10^3/uL (1.8-7.7); PLATELET COUNT ESTIMATE ADEQUATE; SEG NEUTROPHILS PERCENT MAN 66 % (50-80); VACUOLATED NEUTROPHILS 1+ SLIGHT
[2025-01-24 08:41] LABS: BLOOD UREA NITROGEN,BUN 111.0 mg/dL (7-18); ESTIMATED GFR 7.0 mL/min (>=60)
[2025-01-24] MEDS: Insulin Glarg,Human.Rec.Analog 100 Unit/ML 10 ML Vial SUBCUT SCH (08:41)
[2025-01-24 08:42] LABS: CREATININE 5.3 mg/dL (0.55-1.02)
[2025-01-24] MEDS: diphenhydrAMINE 50 MG/ML SDV IVPUSH PRN (10:37)
[2025-01-24] MEDS: methylPREDNISolone Sodium Succinate 40 MG/1 ML SDV IVPUSH ONE (10:37)
[2025-01-24] MEDS: Furosemide 100 MG/10 ML SDV IV ONE (10:38)
[2025-01-25 08:04] LABS: PLATELET COUNT,PLT 325 x10^3/uL (130-400); RED BLOOD CELL COUNT 2.58 x10^6/uL (4.00-5.50)
[2025-01-25 08:20] LABS: WHITE BLOOD CELL COUNT,WBC 62.7 x10^3/uL (4.0-10.0)
[2025-01-25 08:22] LABS: CARBON DIOXIDE,CO2 24.0 mmol/L (21-32); CHLORIDE,CL 114.0 mmol/L (98-107); EST CRCL DRUG DOSING (CG) 5.55 mL/min; GLUCOSE RANDOM 165.0 mg/dL (70-99); POTASSIUM,K 3.4 mmol/L (3.5-5.1); SODIUM,NA 155.0 mmol/L (136-145)
[2025-01-25 08:36] LABS: BAND PERCENT MAN 12 % (0-6); LYMPHOCYTES % ATYPICAL MANUAL 9 % (0); LYMPHOCYTES ABSOLUTE MAN 9.4 x10^3/uL (1.0-4.8); LYMPHOCYTES PERCENT MAN 6 % (25-50); METAMYELOCYTE PERCENT MAN 2 % (0); MONOCYTES ABSOLUTE MAN 8.2 x10^3/uL (0.0-0.8); MONOCYTES PERCENT MAN 13 % (2-11); NEUTROPHILS ABSOLUTE MAN 43.9 x10^3/uL (1.8-7.7); NRBC MANUAL 2 /100WBC (0-5); PLATELET COUNT ESTIMATE ADEQUATE; SEG NEUTROPHILS PERCENT MAN 58 % (50-80); VACUOLATED NEUTROPHILS 1+ SLIGHT
[2025-01-25 08:40] LABS: ESTIMATED GFR 7.0 mL/min (>=60)
[2025-01-25 08:41] LABS: BLOOD UREA NITROGEN,BUN 122.0 mg/dL (7-18); CREATININE 5.8 mg/dL (0.55-1.02)
[2025-01-25] MEDS: methylPREDNISolone Sodium Succinate 40 MG/1 ML SDV IVPUSH ONE (10:17)
[2025-01-26] MEDS ORDERED: BENADRYL TOP PRN (08:40)
[2025-01-26] MEDS: Camphor/Menthol 0.5-0.5% Lotion 222 ML Bottle TOP PRN (16:53)
== END 2025-01-26 21:10 | disposition expired | DRG 871 ==
LOC: VM.MS 10:19
PROVIDERS: ADMIT Internal Medicine; ATTEND Internal Medicine
DX: A41.9 Sepsis, unspecified organism (principal); E43 Unspecified severe protein-calorie malnutrition; I50.43 Acute on chronic combined systolic (congestive) and diastolic (congestive) heart failure; J18.9 Pneumonia, unspecified organism; N17.9 Acute kidney failure, unspecified; D61.818 Other pancytopenia; E87.0 Hyperosmolality and hypernatremia; C84.A0 Cutaneous T-cell lymphoma, unspecified, unspecified site; Z51.5 Encounter for palliative care; Z66 Do not resuscitate; D72.829 Elevated white blood cell count, unspecified; M10.9 Gout, unspecified; E11.9 Type 2 diabetes mellitus without complications; G47.00 Insomnia, unspecified; D64.9 Anemia, unspecified; D69.6 Thrombocytopenia, unspecified; Z79.4 Long term (current) use of insulin; Z68.22 Body mass index [BMI] 22.0-22.9, adult
CPT/HCPCS: 36415; 80048; 80053; 82550; 82947; 85025; 99238-GT; A9270-GY; J1171; J1200; J1938; J2543; J2919